=== PATIENT | female | born 1935 | race Caucasian/White ===

== ENCOUNTER 2016-07-23 14:45 | Inpatient (IN) | payer OTHER ==
[~2016-07-23] VITALS: Ht 165.1 cm; Wt 56.7 kg
[2016-07-23 18:19] VITALS: PULSE 69
[2016-07-23 18:32] VITALS: BP 111/53; PULSE 65; RESP 20
[2016-07-23 19:56] VITALS: BP 121/60; RESP 17
[2016-07-23] MEDS ORDERED: LISI10TA2 PO (19:59)
[2016-07-23] MEDS ORDERED: OXYB5TAB7 PO (20:01)
[2016-07-23] MEDS ORDERED: BISA5TAB6 PO (20:04)
[2016-07-23] MEDS ORDERED: AMIT25TA9 PO (20:04)
[2016-07-23] MEDS ORDERED: OPTI5OP6 BOTH EYES (20:04)
[2016-07-23] MEDS ORDERED: HYDR12.58 PO (20:05)
[2016-07-23 20:22] VITALS: PULSE 69
[2016-07-23] MEDS ORDERED: BISACODYL (EC) 5 MG TAB PO PRN (21:00)
[2016-07-23 23:42] VITALS: BP 118/55; RESP 18
[2016-07-23] MEDS ORDERED: OXYBUTYNIN 5 MG TAB PO SCH (23:45)
[2016-07-23 23:56] VITALS: Ht 165.1 cm; Wt 56.7 kg
[2016-07-24] VITALS (12 sets, daily range): BP systolic 100–132; BP diastolic 53–76; PULSE 69–85; RESP 16–20
--- NOTE | 2016-07-24 00:11 | RADRPT ---
PROCEDURE: Portable chest x-ray. CLINICAL INDICATION: Nasogastric tube placement. TECHNIQUE: Portable AP view of the chest. COMPARISON: None. FINDINGS: A nasogastric tube terminates in the stomach. There are low lung volumes, limiting evaluation of th e pulmonary vessels. There is mild bibasilar atelectasis. The cardiac silhouette is magnified. No pleural effusion is seen. There is no pneumothorax. IMPRESSION: 1. Nasogastric tube tip in the stomach. 2. Low lung volumes. RPTAT: HTAR .Aniket Eagle MD, MD Date Time Electronically viewed and signed by .Aniket Eagle MD, on 07/24/2016 00:11 .R/
[2016-07-24] MEDS: AZELASTINE 0.05% 6 ML OPH BOTH EYES SCH ×2 (01:22→10:10)
[2016-07-24] MEDS: PANTOPRAZOLE 40 MG INJ IV SCH (05:55)
[2016-07-24 08:00] LABS: ADD SCAN DIFF NO
[2016-07-24 08:07] LABS: BASOPHILS % 0.4 % (0.0-2.0); EOSINOPHILS # 0.2 10^3/ul (0.0-0.5); HEMATOCRIT 40.5 % (37.0-47.0); HEMOGLOBIN 13.4 g/dl (12.0-16.0); LYMPHOCYTES # 3.2 10^3/ul (0.8-2.9); LYMPHOCYTES % 34.5 % (15.0-51.0); MEAN CORPUSCULAR HEMOGLOBIN 29.7 pg (29.0-33.0); MEAN CORPUSCULAR HGB CONC 33.1 g/dl (32.0-37.0); MEAN CORPUSCULAR VOLUME 89.8 fl (82.0-101.0); MEAN PLATELET VOLUME 11.3 fl (7.4-10.4); MONOCYTE # 0.6 10^3/ul (0.3-0.9); MONOCYTES % 6.7 % (0.0-11.0); NEUTROPHIL # 5.3 10^3/ul (1.6-7.5); NEUTROPHILS % 56.1 % (39.0-77.0); RED BLOOD COUNT 4.51 10^6/ul (4.20-5.40); WHITE BLOOD COUNT 9.4 10^3/ul (4.8-10.8)
[2016-07-24 08:27] LABS: ALBUMIN 4.5 g/dl (3.3-4.9); ALBUMIN/GLOBULIN RATIO 1.21; BILIRUBIN,INDIRECT 0.9 mg/dl (0-1.1); BILIRUBIN,TOTAL 0.9 mg/dl (0.2-1.3); CALCIUM 8.7 mg/dl (8.4-10.2); CREATININE 0.57 mg/dl (0.44-1.00); TOTAL PROTEIN 8.2 g/dl (6.1-8.1)
[2016-07-24] MEDS: ASPIRIN 325 MG TAB GTB SCH (10:10)
[2016-07-24] MEDS: OXYBUTYNIN 5 MG TAB NGT SCH ×3 (10:11→20:45)
[2016-07-24 11:20] LABS: PLATELET COUNT 230 10^3/UL (140-415)
--- NOTE | 2016-07-24 21:03 | HP ---
DATE OF ADMISSION: 07/23/2016 HISTORY OF PRESENT ILLNESS: The patient is an 81-year-old female who was recently transferred from [facility] with diagnosis of acute stroke. Elderly female with history of hypertension, history of dementia, presented to [facility] with altered level of consciousness, left-sided weakness. The patient noted to have blood pressure 123/61 at the time of arrival. The patient was seen. The patient's diagnoses include acute left-sided weakness, hypertension, dementia, anemia, positive troponin. saw this patient in consultation, and her impression, the patient has stroke, more likely Joselito paralysis. The patient's chest x-ray shows mild vascular congestion, and patient had CT brain, shows white matter disease compatible with chronic small- vessel disease. The patient also had MRI of the brain, shows acute infarction involving the right corpus striatum, no evidence of hemorrhagic conversion or associated mass effect, mild to moderate generalized volume loss, mild chronic microvascular ischemic changes. The patient has ultrasound of the carotids, shows less than 50% stenosis bilaterally in the internal carotid arteries, normal antegrade flow in the vertebral arteries bilaterally. Chest x-ray: Blunting of the costophrenic angles bilaterally which may reflect small bilateral effusion or pleural thickening, vascular calcification consistent with atherosclerosis. 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 The patient was transferred here for further management. ALLERGY HISTORY, FAMILY HISTORY, SOCIAL HISTORY: Cannot be obtained. MEDICATION HISTORY: 1. Tylenol. 2. Aluminum hydroxide. 3. Aspirin. 4. Nitroglycerin. 5. Protonix. 6. Lisinopril. 7. Ditropan. 8. Eyedrops. 9. Bisacodyl. 10. Amitriptyline. REVIEW OF SYSTEMS: Cannot be obtained. PHYSICAL EXAMINATION: GENERAL: The patient is altered, weak, lethargic. VITAL SIGNS: Stable. HEENT: Head is atraumatic, normocephalic. Pupils equal, reactive to light. NECK: Supple. No JVD. LUNGS: Clear. CARDIOVASCULAR: S1, S2 are normal. ABDOMEN: Soft, nontender. Bowel sounds present. No palpable mass. EXTREMITIES: No cyanosis, clubbing or edema. CENTRAL NERVOUS SYSTEM: The patient is awake, at times alert with left-sided weakness noted. MUSCULOSKELETAL: No arthritis, DJD noted. IMPRESSION: 1. Acute cerebrovascular accident, left-sided hemiplegia. 2. Hypertension. 3. History of dementia. 4. Atherosclerotic heart disease. PLAN: Keep her n.p.o., IV fluid since patient failed swallow test at [facility]. Aspirin and blood pressure medicine as needed. The patient was already seen by Dr. Tobin, so no cardiology consultation will be recommended at this point. The patient was seen by Neurology at [facility]. GI consultation with G-tube placement will be obtained. Dictated By: GIAN HERNANDEZ MD BS/NTS Conf#: [id number] DID#: [id number] MTDD
--- NOTE | 2016-07-24 21:34 | CONS ---
DATE OF ADMISSION: 07/23/2016 DATE OF CONSULTATION: TYPE OF CONSULTATION: Gastroenterology. REFERRING PHYSICIAN: Dr. Marvin Ghosh REASON FOR CONSULTATION: Placement of G-tube. HISTORY OF PRESENT ILLNESS: An 81-year-old female with a history of hypertension, dementia, was adm itted to [facility] for altered level of consciousness. In the ER, patient was evaluated, found to have left-sided weakness. When she was at [place] [facility], her blood pressure was stable. W jes cell count was normal, hematocrit was 40. A CAT scan was done which did not reveal any intracr anial bleed or significant mass effect. There was age-related lacunar infarction, and the patient w as admitted for further management. I think patient had a swallow evaluation; she failed. NG tube was passed, and now GI consult is called in for placement of G-tube. The patient is transferred to [facility] for insurance purposes. PAST MEDICAL HISTORY: Dementia, CVA. ALLERGIES: NEGATIVE. FAMILY HISTORY: Negative. SOCIAL HISTORY: Nothing contributory. She does not smoke, drink or take any recreational drugs. MEDICATIONS: All reviewed. She is on: 1. Bisacodyl. 2. Hydrochlorothiazide. 3. Amitriptyline. 4. Eye drops. 5. Lisinopril. 6. Oxybutynin. PHYSICAL EXAMINATION: GENERAL: The patient is sleepy. VITAL SIGNS: Stable. HEENT: Unremarkable. NECK: Supple. No thyromegaly, no lymphadenopathy. CARDIOVASCULAR: No murmur, gallop or click. LUNGS: Clear. ABDOMEN: Benign. EXTREMITIES: No edema. CENTRAL NERVOUS SYSTEM: Grossly within normal limits. The patient has got NG tube. IMPRESSION: 1. Cerebrovascular accident. 2. Dementia. 3. Hypertension. PLAN: Proceed with placement of G-tube. Discussed with the family, they were in agreement. Explai artemio to them with the help of correspondence coordinator, all the questions answered. Pros and cons of the procedur e also were explained and understood and agreed. Dictated By: MACK WOODS/RHONA Conf#: [id number] DID#: [id number]
[2016-07-25] VITALS (11 sets, daily range): BP systolic 99–129; BP diastolic 60–67; PULSE 70–93; RESP 16–20
[2016-07-25] MEDS: PANTOPRAZOLE 40 MG INJ IV SCH (05:53)
[2016-07-25] MEDS: AZELASTINE 0.05% 6 ML OPH BOTH EYES SCH (09:52)
[2016-07-25] MEDS: ASPIRIN 325 MG TAB GTB SCH (09:52)
[2016-07-25] MEDS: OXYBUTYNIN 5 MG TAB NGT SCH ×3 (09:52→20:50)
--- NOTE | 2016-07-25 12:13 | CONS ---
Date/Time of Note Date/Time of Note DATE: 07/25/16 TIME: 12:02 Assessment/Plan Assessment/Plan Chief Complaint/Hosp Course 81 year old female with history of DM, HTN tx from [facility] for right hemisphere infarction with resulting left sided weakness and dysphagia. -continue on aspirin -check FLP, HBA1c for optimization of risk factors -maintain normotensive blood pressure Goal <140/90 -2D ECHO if testing has not been completed at [facility] -continue telemetry monitoring for afib -planned for PEG placement -DVT ppx -likely will require SNF Problems: Consultation Date/Type/Reason Admit Date/Time July 23, 2016 at 18:01 Date of Consultation: Jul 25, 2016 Type of Consultation: Neurology Reason for Consultation evaluation for left sided weakness Referring Provider: GIAN HERNANDEZ MD Hx of Present Illness 81 year old female with history of dementia transferred from [facility] on 07/20 for management of CVA. She has a known history of dementia and hypertension and had presented to [facility] with altered mental status and left sided weakness and troponin elevation (0.042). MRI showed an acute infarction of right basal ganglia? per documentation no evidence of hemorrhagic conversion, carotid duplex less than 50% stenosis bilaterally. There was a 2x2 mm anterior projection saccular aneurysm from the Left MCA bifurcation also noted. She was tx to [facility] for further management, has an NGT for feeds has been unable to pass dysphagia screening and is planned for PEG placement. She has no documented history of afib, Daughter at bedside states patient is living with family at home prior to this admission and did require assistance with most ADL's. non verbal left sided hemiplegia dysphagia Social History Smoking Status: Never smoker Exam/Review of Systems Vital Signs Vitals Vital Signs Date Time Temp Pulse Resp B/P Pulse Ox O2 Delivery O2 Flow Rate FiO2 07/25/16 11:12 98.5 65 18 99/60 95 07/24/16 20:00 Nasal Cannula 2.0 Intake and Output 07/24/16 07/24/16 07/25/16 15:00 23:00 07:00 Intake Total 440 ml 440 ml Balance 440 ml 440 ml Exam elderly thin appearing frail female NAD NGT feeds she is difficult to arouse she moans and is unable to verbalize or follow any commands CN: LINDA when eyes forced open she has a right gaze preference and is unable to cross over to the left on command oculocephalics are intact, no nystagmus, no significant facial asymmetry corneals are intact gag is present Motor: left arm and leg are flaccid 0/5 decreased tone right arm and leg withdraw anti-gravity to noxious seems to sense noxious only on the right arm and leg unable to cooperate with coordination Reflexes: 2+ UE, 2+ LE absent AJ toes are mute Results Result Diagram: 07/24/1664007/24/16640 Medications Medications Current Medications Azelastine HCl (Optivar 0.05% Oph) 1 drop DAILY BOTH EYES Last administered on 07/25/16 09:52; Admin Dose 1 DROP; Start 07/23/16 at 23:45 Bisacodyl (Dulcolax) 5 mg DAILY PRN PO CONSTIPATION; Start 07/23/16 at 21:00 Pantoprazole (Protonix Iv) 40 mg DAILY@06 IV Last administered on 07/25/16 05: 53; Admin Dose 40 MG; Start 07/24/16 at 06:00 Aspirin (Aspirin) 325 mg DAILY GTB Last administered on 07/25/16 09:52; Admin Dose 325 MG; Start 07/24/16 at 09:00 Oxybutynin Chloride (Ditropan) 5 mg TID NGT Last administered on 07/25/16 09:52 ; Admin Dose 5 MG; Start 07/24/16 at 09:00 SAUL MONTOYA MD Jul 25, 2016 12:13
[2016-07-26] VITALS (20 sets, daily range): BP systolic 94–119; BP diastolic 54–75; PULSE 60–88; RESP 12–25
[2016-07-26] MEDS: PANTOPRAZOLE 40 MG INJ IV SCH (06:19)
[2016-07-26 08:32] LABS: CHOL/HDL RATIO 4.1 RATIO
[2016-07-26] MEDS: AZELASTINE 0.05% 6 ML OPH BOTH EYES SCH (08:44)
[2016-07-26] MEDS: OXYBUTYNIN 5 MG TAB NGT SCH ×3 (08:44→20:50)
[2016-07-26] MEDS: ASPIRIN 325 MG TAB GTB SCH (08:44)
--- NOTE | 2016-07-26 09:25 | RADRPT ---
PROCEDURE: MRI Brain without contrast. CLINICAL INDICATION: Stroke. TECHNIQUE: An MRI of the brain was performed utilizing the following sequences: Sagittal and axial T1 weighted, axial T2 weighted, axial diffusion weighted with ADC mapping, coronal GRE, and axial F LAIR. COMPARISON: None. FINDINGS: There is area of restricted diffusion involving right romero radiata and right lentiform nucleus con sistent with acute/recent infarct. No hypointense signal abnormalities are seen on the GRE images t o suggest the presence of blood degradation products. There is no evidence of intracranial hemorrha ge, mass effect, or midline shift. No extra-axial fluid collections are seen. The ventricles and sul ci are mildly to moderately enlarged indicative of volume loss. There are mild confluent foci of T2 FLAIR hyperintensity mainly in the periventricular and deep whit e matter, which are nonspecific in etiology but likely reflect chronic small vessel ischemic changes . Small T2 hyperintense foci are noted in bilateral lentiform nuclei which likely represent dilated pe rivascular spaces versus old lacunar infarcts. No abnormal intracranial vascular flow void is noted. The visualized paranasal sinuses demonstrate m ild scattered mucosal thickening mainly in ethmoid air cells and maxillary sinuses. There is elongat ed appearance of the right globe which may represent staphyloma. There is thinning of right lens ind icative of prior lens replacement. IMPRESSION: 1. Acute/recent infarct involving right romero radiata and right lentiform nucleus. No evidence of hemorrhagic transformation. 2. Mild to moderate chronic small vessel ischemic changes. 3. Dilated perivascular spaces versus old lacunar infarcts in bilateral lentiform nuclei. 4. Mild to moderate generalized cerebral volume loss. A call report was made and above findings were discussed and acknowledged by the patient's RN Maira Jefferson on 07/26/2016 9:[address] Borrego. RPTAT: JJ .Mayra Larry MD, MD Date Time Electronically viewed and signed by .Mayra Larry MD, MD on 07/26/2016 09:24 .N/
[2016-07-26] MEDS ORDERED: CEFAZOLIN 1 GM/50 ML (PMX) 50 ML IVPB ONE (12:01)
[2016-07-26] MEDS ORDERED: PROPOFOL 20 ML ONE (12:23)
--- NOTE | 2016-07-26 12:55 | GILP ---
DATE OF PROCEDURE: PROCEDURE PERFORMED: Percutaneous endoscopy and gastrostomy. INDICATION: An 81-year-old female undergoing this procedure for dysphagia secondary to a stroke. T he purpose is to put a G-tube directly into the stomach for prison enteral nutrition. INFORMED CONSENT: The risks of the procedure, related and unrelated complications, anesthetic risks , and alternatives were discussed, and informed consent was obtained. DESCRIPTION OF PROCEDURE: The patient was brought to the GI lab, sedated by the anesthesiologist. After optimal sedation, the scope was passed with much ease into the esophagus. The patient also re ceived Ancef 1 gram prior to the procedure. The scope was advanced all the way into the stomach and duodenum. There was no evidence of obstruction. By transillumination and digital palpation techni que, an appropriate site was chosen on the anterior abdominal wall, making sure that we have avoidin g the large fold on the anterior abdominal wall. The site was sterilized with chlorhexidine solutio n, 2% Xylocaine instilled by safe method. A small incision was made. Through that incision a troca r stylus was passed into the stomach. The stylet was removed. Over the tip of the catheter the ins ertion wire was passed and the entire procedure was completed by modified Ponsky technique. The pat ient was rescoped. The position of the internal bumper was confirmed. External bumper was secured. She tolerated the procedure very well. IMPRESSION: Successful placement of G-tube done. PLAN: Resume feeding after 6 hours and all the medication after 6 hours. Abdominal binder all the time. Dictated By: MACK WOODS/RHONA Conf#: [id number] DID#: [id number] CC: GIAN HERNANDEZ MD;*EndCC*
[2016-07-26] MEDS ORDERED: ONDANSETRON 4 MG INJ IV PRN (14:00)
[2016-07-26] MEDS ORDERED: MORPHINE 2 MG IV PRN (14:00)
[2016-07-26] MEDS ORDERED: LABETALOL 5 MG IV PRN (14:00)
--- NOTE | 2016-07-26 14:06 | PN ---
Date/Time of Note Date/Time of Note DATE: 07/26/16 TIME: 14:04 Assessment/Plan VTE Prophylaxis VTE Prophylaxis Intervention: SCD's Lines/Catheters IV Catheter Type (from Nrs): Peripheral IV Central line still needed: Yes Urinary Cath still in place: No Assessment/Plan Chief Complaint/Hosp Course 1. S/p Acute cerebrovascular accident, left-sided hemiplegia. 2. Hypertension. 3. History of dementia. 4. Atherosclerotic heart disease. 5. GT Problems: Assessment/Plan 1. Continue tube feedings Subjective 24 Hr Interval Summary Subjective hx not possible: pt non-verbal Exam/Review of Systems Vital Signs Vitals Vital Signs Date Time Temp Pulse Resp B/P Pulse Ox O2 Delivery O2 Flow Rate FiO2 07/26/16 13:02 64 25 107/75 95 Room Air 07/26/16 12:30 97.5 8.0 Intake and Output 07/25/16 07/25/16 07/26/16 15:00 23:00 07:00 Intake Total 480 ml 260 ml Balance 480 ml 260 ml Exam Constitutional: other (lethargic) Psych: no complaints Eyes: nl conjunctiva Neck: supple Respiratory: clear to auscultation, normal air movement Cardiovascular: regular rate and rhythm Gastrointestinal: other (gt), soft Genitourinary - Female: nl external genitalia Results Result Diagram: 07/24/1664007/24/16 06 Results 24 hrs Laboratory Tests Test 07/26/16 07:02 Hemoglobin A1c 5.7 Triglycerides Level 106 Cholesterol Level 142 LDL Cholesterol, Calculated 87 HDL Cholesterol 34 Cholesterol/HDL Ratio 4.1 Medications Medications Current Medications Azelastine HCl (Optivar 0.05% Oph) 1 drop DAILY BOTH EYES Last administered on 07/26/16 08:44; Admin Dose 1 DROP; Start 07/23/16 at 23:45 Bisacodyl (Dulcolax) 5 mg DAILY PRN PO CONSTIPATION; Start 07/23/16 at 21:00 Pantoprazole (Protonix Iv) 40 mg DAILY@06 IV Last administered on 07/26/16 06: 19; Admin Dose 40 MG; Start 07/24/16 at 06:00 Aspirin (Aspirin) 325 mg DAILY GTB Last administered on 07/25/16 09:52; Admin Dose 325 MG; Start 07/24/16 at 09:00 Oxybutynin Chloride (Ditropan) 5 mg TID NGT Last administered on 07/25/16t 20:50 ; Admin Dose 5 MG; Start 07/24/16 at 09:00 Morphine Sulfate (morphine (REC)) 2 mg PACU PRN IV PAIN; Start 07/26/16 at 14:00 ; Stop 07/26/16 at 21:00 JAYESH LARIOS Jul 26, 2016 14:06
--- NOTE | 2016-07-26 14:53 | CONS ---
Date/Time of Note Date/Time of Note DATE: 07/26/16 TIME: 14:47 Assessment/Plan Assessment/Plan Chief Complaint/Hosp Course Left hemiparesis Problems: Additional Assessment/Plan 81 year old female with history of DM, HTN tx from [facility] for right hemisphere infarction with resulting left sided weakness and dysphagia. MRI of the brain showed acute/recent infarct involving right romero radiata and right lentiform nucleus, mild to moderate chronic small vessel ischemic changes , dilated perivascular spaces versus old lacunar infarcts in bilateral lentiform nuclei, mild to moderate generalized cerebral volume loss. PEG has been placed. Plan -continue on aspirin -check FLP, HBA1c for optimization of risk factors -maintain normotensive blood pressure Goal <140/90 -2D ECHO -continue telemetry monitoring for afib -DVT ppx -likely will require SNF Consultation Date/Type/Reason Admit Date/Time July 23, 2016 at 18:01 Initial Consult Date 07/25/16 Type of Consultation: Neurology Referring Provider: GIAN HERNANDEZ MD 24 HR Interval Summary Free Text/Dictation She has been doing well, more awake and alert. Had an NG tube placed. Continued to be left hemiparetic. MRI of the brain showed acute/recent infarct involving right romero radiata and right lentiform nucleus, mild to moderate chronic small vessel ischemic changes, dilated perivascular spaces versus old lacunar infarcts in bilateral lentiform nuclei, mild to moderate generalized cerebral volume loss. Exam/Review of Systems Vital Signs Vitals Vital Signs Date Time Temp Pulse Resp B/P Pulse Ox O2 Delivery O2 Flow Rate FiO2 07/26/16 13:02 64 25 107/75 95 Room Air 07/26/16 12:30 97.5 8.0 Intake and Output 07/25/16 07/25/16 07/26/16 15:00 23:00 07:00 Intake Total 480 ml 260 ml Balance 480 ml 260 ml Exam Constitutional: alert Psych: no complaints Head: normocephalic Eyes: EOMI, nl conjunctiva, nl lids ENMT: nl external ears & nose, nl lips & teeth, nl nasal mucosa & septum Neck: non-tender, supple Respiratory: clear to auscultation, normal air movement Cardiovascular: nl pulses, regular rate and rhythm Gastrointestinal: nl liver, spleen, non-tender, soft Neurological: other (Alert and awake, left hemiparesis, left Babinski) Results Result Diagram: 07/24/1641 07/24/16640 Results 24 hrs Laboratory Tests Test 07/26/16 07:02 Hemoglobin A1c 5.7 Triglycerides Level 106 Cholesterol Level 142 LDL Cholesterol, Calculated 87 HDL Cholesterol 34 Cholesterol/HDL Ratio 4.1 Medications Medications Current Medications Azelastine HCl (Optivar 0.05% Oph) 1 drop DAILY BOTH EYES Last administered on 07/26/16 08:44; Admin Dose 1 DROP; Start 07/23/16 at 23:45 Bisacodyl (Dulcolax) 5 mg DAILY PRN PO CONSTIPATION; Start 07/23/16 at 21:00 Pantoprazole (Protonix Iv) 40 mg DAILY@06 IV Last administered on 07/26/16 06: 19; Admin Dose 40 MG; Start 07/24/16 at 06:00 Aspirin (Aspirin) 325 mg DAILY GTB Last administered on 07/25/16 09:52; Admin Dose 325 MG; Start 07/24/16 at 09:00 Oxybutynin Chloride (Ditropan) 5 mg TID NGT Last administered on 07/25/16 20:50 ; Admin Dose 5 MG; Start 07/24/16 at 09:00 Morphine Sulfate (morphine (REC)) 2 mg PACU PRN IV PAIN; Start 07/26/16 at 14:00 ; Stop 07/26/16 at 21:00 Procedures Procedures MRI of the brain 07/26/2016 IMPRESSION: 1. Acute/recent infarct involving right romero radiata and right lentiform nucleus. No evidence of hemorrhagic transformation. 2. Mild to moderate chronic small vessel ischemic changes. 3. Dilated perivascular spaces versus old lacunar infarcts in bilateral lentiform nuclei. 4. Mild to moderate generalized cerebral volume loss. A call report was made and above findings were discussed and acknowledged by the patient's RN Maira Jefferson on 07/26/2016 9:[address] Borrego. RPTAT: JJ .Mayra Larry MD, Date Time Electronically viewed and signed by .Mayra Larry MD, on 07/26/2016 09:24 SHYAM RENDON MD Jul 26, 2016 14:53
--- NOTE | 2016-07-26 23:55 | RADRPT ---
Vent Rate: 82 bpm RR Interval: 0 msec RI Interval: 174 msec QRS Duration: 84 msec QT Interval: 380 msec QTC Interval: 443 msec P-R-T [place]: 39 - -36 - 68 degrees Normal sinus rhythm Left axis deviation Inferior infarct , age undetermined Possible Anterior infarct , age undetermined Abnormal ECG Electronically Signed By: Rob Kendall [id number]
[2016-07-27] VITALS (12 sets, daily range): BP systolic 100–127; BP diastolic 54–64; PULSE 62–87; RESP 17–19
[2016-07-27] MEDS: PANTOPRAZOLE 40 MG INJ IV SCH (06:14)
[2016-07-27 07:33] LABS: ADD SCAN DIFF NO
[2016-07-27 07:35] LABS: BASOPHILS % 0.3 % (0.0-2.0); EOSINOPHILS # 0.1 10^3/ul (0.0-0.5); EOSINOPHILS % 0.8 % (0.0-7.0); HEMATOCRIT 41.6 % (37.0-47.0); HEMOGLOBIN 13.5 g/dl (12.0-16.0); LYMPHOCYTES % 31.5 % (15.0-51.0); MEAN CORPUSCULAR HEMOGLOBIN 29.2 pg (29.0-33.0); MEAN CORPUSCULAR HGB CONC 32.5 g/dl (32.0-37.0); MEAN CORPUSCULAR VOLUME 89.8 fl (82.0-101.0); MEAN PLATELET VOLUME 10.2 fl (7.4-10.4); MONOCYTE # 0.7 10^3/ul (0.3-0.9); MONOCYTES % 7.5 % (0.0-11.0); NEUTROPHIL # 5.7 10^3/ul (1.6-7.5); NEUTROPHILS % 59.6 % (39.0-77.0); PLATELET COUNT 258 10^3/UL (140-415); RED BLOOD COUNT 4.63 10^6/ul (4.20-5.40); RED CELL DISTRIBUTION WIDTH 13.2 % (11.5-14.5); WHITE BLOOD COUNT 9.6 10^3/ul (4.8-10.8)
[2016-07-27 09:28] LABS: CALCIUM 8.7 mg/dl (8.4-10.2); CREATININE 0.58 mg/dl (0.44-1.00); POTASSIUM 3.6 mmol/L (3.5-5.1)
[2016-07-27] MEDS: AZELASTINE 0.05% 6 ML OPH BOTH EYES SCH (10:12)
[2016-07-27] MEDS: OXYBUTYNIN 5 MG TAB NGT SCH ×2 (10:12→12:27)
[2016-07-27] MEDS: ASPIRIN 325 MG TAB GTB SCH (10:12)
--- NOTE | 2016-07-27 13:03 | CONS ---
Date/Time of Note Date/Time of Note DATE: 07/27/16 TIME: 13:00 Assessment/Plan Assessment/Plan Chief Complaint/Hosp Course Left hemiparesis Problems: Additional Assessment/Plan 81 year old female with history of DM, HTN tx from [facility] for right hemisphere infarction with resulting left sided weakness and dysphagia. MRI of the brain showed acute/recent infarct involving right romero radiata and right lentiform nucleus, mild to moderate chronic small vessel ischemic changes , dilated perivascular spaces versus old lacunar infarcts in bilateral lentiform nuclei, mild to moderate generalized cerebral volume loss. PEG has been placed. Plan -continue on aspirin -check FLP, HBA1c for optimization of risk factors -maintain normotensive blood pressure Goal <140/90 -2D ECHO -continue telemetry monitoring for afib -DVT ppx -likely will require SNF Consultation Date/Type/Reason Admit Date/Time July 23, 2016 at 18:01 Initial Consult Date 07/25/16 Type of Consultation: Neurology Referring Provider: GIAN HERNANDEZ MD 24 HR Interval Summary Free Text/Dictation Had a PEG placed yesterday. Improving and her weakness. Exam/Review of Systems Vital Signs Vitals Vital Signs Date Time Temp Pulse Resp B/P Pulse Ox O2 Delivery O2 Flow Rate FiO2 07/27/16 12:01 62 07/27/16 11:35 98.7 17 111/61 95 07/26/16 13:02 Room Air 07/26/16 12:30 8.0 Intake and Output 07/26/16 07/26/16 07/27/16 15:00 23:00 07:00 Intake Total 0 ml Balance 0 ml Exam Constitutional: other (Sleepy but arousable) Psych: nl mood/affect, no complaints Head: atraumatic, normocephalic Eyes: EOMI, nl conjunctiva, nl lids, nl sclera ENMT: mucosa pink and moist, nl external ears & nose, nl lips & teeth, nl nasal mucosa & septum Neck: non-tender, supple Respiratory: clear to auscultation, normal air movement Cardiovascular: nl pulses, regular rate and rhythm Gastrointestinal: nl liver, spleen, non-tender, soft Neurological: other (She is sleepy but arousable, left hemiparesis) Results Result Diagram: 07/27/16 0700 07/27/16 0700 Results 24 hrs Laboratory Tests Test 07/27/16 07:00 White Blood Count 9.6 Red Blood Count 4.63 Hemoglobin 13.5 Hematocrit 41.6 Mean Corpuscular Volume 89.8 Mean Corpuscular Hemoglobin 29.2 Mean Corpuscular Hemoglobin Concent 32.5 Red Cell Distribution Width 13.2 Platelet Count 258 Mean Platelet Volume 10.2 Neutrophils % 59.6 Lymphocytes % 31.5 Monocytes % 7.5 Eosinophils % 0.8 Basophils % 0.3 Nucleated Red Blood Cells % 0.0 Neutrophils # 5.7 Lymphocytes # 3.0 H Monocytes # 0.7 Eosinophils # 0.1 Basophils # 0.0 Nucleated Red Blood Cells # 0.0 Sodium Level 143 Potassium Level 3.6 Chloride Level 108 Carbon Dioxide Level 26 Anion Gap 13 Blood Urea Nitrogen 19 Creatinine 0.58 Glucose Level 116 Calcium Level 8.7 Medications Medications Current Medications Azelastine HCl (Optivar 0.05% Oph) 1 drop DAILY BOTH EYES Last administered on 07/27/16 10:12; Admin Dose 1 DROP; Start 07/23/16 at 23:45 Bisacodyl (Dulcolax) 5 mg DAILY PRN PO CONSTIPATION; Start 07/23/16 at 21:00 Pantoprazole (Protonix Iv) 40 mg DAILY@06 IV Last administered on 07/27/16 06: 14; Admin Dose 40 MG; Start 07/24/16 at 06:00 Aspirin (Aspirin) 325 mg DAILY GTB Last administered on 07/27/16 10:12; Admin Dose 325 MG; Start 07/24/16 at 09:00 Oxybutynin Chloride (Ditropan) 5 mg TID NGT Last administered on 07/27/16 12:27 ; Admin Dose 5 MG; Start 07/24/16 at 09:00 SHYAM RENDON MD Jul 27, 2016 13:03
--- NOTE | 2016-07-27 13:30 | PN ---
Date/Time of Note Date/Time of Note DATE: 07/27/16 TIME: 13:28 Assessment/Plan VTE Prophylaxis VTE Prophylaxis Intervention: SCD's Lines/Catheters IV C[facility] Type ([facility] Saline Lock Urinary Cath still in place: No Assessment/Plan Chief Complaint/Hosp Course 1. S/p Acute cerebrovascular accident, left-sided hemiplegia. 2. Hypertension. 3. History of dementia. 4. Atherosclerotic heart disease. 5. GT Problems: Assessment/Plan 1. Discharge home Subjective 24 Hr Interval Summary Free Text/Dictation whisper words Respiratory: no complaints Cardiovascular: no complaints Gastrointestinal: no complaints Exam/Review of Systems Vital Signs Vitals Vital Signs Date Time Temp Pulse Resp B/P Pulse Ox O2 Delivery O2 Flow Rate FiO2 07/27/16 12:01 62 07/27/16 11:35 98.7 17 111/61 95 07/26/16 13:02 Room Air 07/26/16 12:30 8.0 Intake and Output 07/26/16 07/26/16 07/27/16 15:00 23:00 07:00 Intake Total 0 ml Balance 0 ml Exam Constitutional: alert (name only) Psych: no complaints Head: normocephalic Neck: supple Respiratory: clear to auscultation Cardiovascular: regular rate and rhythm Gastrointestinal: other (gt), soft Results Result Diagram: 07/27/16 0700 07/27/16 0700 Results 24 hrs Laboratory Tests Test 07/27/16 07:00 White Blood Count 9.6 Red Blood Count 4.63 Hemoglobin 13.5 Hematocrit 41.6 Mean Corpuscular Volume 89.8 Mean Corpuscular Hemoglobin 29.2 Mean Corpuscular Hemoglobin Concent 32.5 Red Cell Distribution Width 13.2 Platelet Count 258 Mean Platelet Volume 10.2 Neutrophils % 59.6 Lymphocytes % 31.5 Monocytes % 7.5 Eosinophils % 0.8 Basophils % 0.3 Nucleated Red Blood Cells % 0.0 Neutrophils # 5.7 Lymphocytes # 3.0 H Monocytes # 0.7 Eosinophils # 0.1 Basophils # 0.0 Nucleated Red Blood Cells # 0.0 Sodium Level 143 Potassium Level 3.6 Chloride Level 108 Carbon Dioxide Level 26 Anion Gap 13 Blood Urea Nitrogen 19 Creatinine 0.58 Glucose Level 116 Calcium Level 8.7 Medications Medications Current Medications Azelastine HCl (Optivar 0.05% Oph) 1 drop DAILY BOTH EYES Last administered on 07/27/16 10:12; Admin Dose 1 DROP; Start 07/23/16 at 23:45 Bisacodyl (Dulcolax) 5 mg DAILY PRN PO CONSTIPATION; Start 07/23/16 at 21:00 Pantoprazole (Protonix Iv) 40 mg DAILY@06 IV Last administered on 07/27/16 06: 14; Admin Dose 40 MG; Start 07/24/16 at 06:00 Aspirin (Aspirin) 325 mg DAILY GTB Last administered on 07/27/16 10:12; Admin Dose 325 MG; Start 07/24/16 at 09:00 Oxybutynin Chloride (Ditropan) 5 mg TID NGT Last administered on 07/27/16 12:27 ; Admin Dose 5 MG; Start 07/24/16 at 09:00 JAYESH LARIOS Jul 27, 2016 13:30
--- NOTE | 2016-07-27 13:42 | PDOCDIS ---
Discharge Instructions DIAGNOSIS Discharge Diagnosis: CVA, dysphagia CONDITION Patient Condition: Stable HOME CARE INSTRUCTIONS: Diet Instructions: Special Diet: GT FEEDING ACTIVITY: Activity Restrictions: Slowly Increase Activity Bathing Restrictions: Sponge Bath REFERRALS Other Referrals PCP 1 week SCHOOL/WORK RELEASE May return to School/Work with: With Restrictions JAYESH LARIOS Jul 27, 2016 13:42
[2016-07-27] MEDS ORDERED: OXYB5TAB7 NGT (13:45)
--- NOTE | 2016-07-27 20:17 | CONS ---
Date/Time of Note Date/Time of Note DATE: 07/27/16 TIME: 20:15 Assessment/Plan Assessment/Plan Additional Assessment/Plan IMPRESSION: 1. Cerebrovascular accident. 2. Dementia. 3. Hypertension. 4 s/p PEG Plan tolerating feeding increase feeding Consultation Date/Type/Reason Admit Date/Time July 23, 2016 at 18:01 Initial Consult Date 07/25/16 Type of Consultation: Neurology Referring Provider: GIAN HERNANDEZ MD 24 HR Interval Summary Constitutional: improved Exam/Review of Systems Vital Signs Vitals Vital Signs Date Time Temp Pulse Resp B/P Pulse Ox O2 Delivery O2 Flow Rate FiO2 07/27/16 20:10 98.7 72 18 118/64 95 07/26/16 13:02 Room Air 07/26/16 12:30 8.0 Intake and Output 07/26/16 07/26/16 07/27/16 15:00 23:00 07:00 Intake Total 0 ml Balance 0 ml Results Result Diagram: 07/27/16 0700 07/27/16 0700 Results 24 hrs Laboratory Tests Test 07/27/16 07:00 White Blood Count 9.6 Red Blood Count 4.63 Hemoglobin 13.5 Hematocrit 41.6 Mean Corpuscular Volume 89.8 Mean Corpuscular Hemoglobin 29.2 Mean Corpuscular Hemoglobin Concent 32.5 Red Cell Distribution Width 13.2 Platelet Count 258 Mean Platelet Volume 10.2 Neutrophils % 59.6 Lymphocytes % 31.5 Monocytes % 7.5 Eosinophils % 0.8 Basophils % 0.3 Nucleated Red Blood Cells % 0.0 Neutrophils # 5.7 Lymphocytes # 3.0 H Monocytes # 0.7 Eosinophils # 0.1 Basophils # 0.0 Nucleated Red Blood Cells # 0.0 Sodium Level 143 Potassium Level 3.6 Chloride Level 108 Carbon Dioxide Level 26 Anion Gap 13 Blood Urea Nitrogen 19 Creatinine 0.58 Glucose Level 116 Calcium Level 8.7 Medications Medications Current Medications Azelastine HCl (Optivar 0.05% Oph) 1 drop DAILY BOTH EYES Last administered on 07/27/16 10:12; Admin Dose 1 DROP; Start 07/23/16 at 23:45 Bisacodyl (Dulcolax) 5 mg DAILY PRN PO CONSTIPATION; Start 07/23/16 at 21:00 Pantoprazole (Protonix Iv) 40 mg DAILY@06 IV Last administered on 07/27/16 06: 14; Admin Dose 40 MG; Start 07/24/16 at 06:00 Aspirin (Aspirin) 325 mg DAILY GTB Last administered on 07/27/16 10:12; Admin Dose 325 MG; Start 07/24/16 at 09:00 MACK HAINES MD Jul 27, 2016 20:17
[2016-07-28] VITALS (13 sets, daily range): BP systolic 101–112; BP diastolic 55–63; PULSE 62–90; RESP 17–19
[2016-07-28] MEDS: PANTOPRAZOLE 40 MG INJ IV SCH (05:17)
[2016-07-28] MEDS: ASPIRIN 325 MG TAB GTB SCH (09:02)
[2016-07-28] MEDS: AZELASTINE 0.05% 6 ML OPH BOTH EYES SCH (09:02)
--- NOTE | 2016-07-28 12:55 | CONS ---
Date/Time of Note Date/Time of Note DATE: 07/28/16 TIME: 12:54 Assessment/Plan Assessment/Plan Chief Complaint/Hosp Course Left hemiparesis Problems: Additional Assessment/Plan 81 year old female with history of DM, HTN tx from [facility] for right hemisphere infarction with resulting left sided weakness and dysphagia. MRI of the brain showed acute/recent infarct involving right romero radiata and right lentiform nucleus, mild to moderate chronic small vessel ischemic changes , dilated perivascular spaces versus old lacunar infarcts in bilateral lentiform nuclei, mild to moderate generalized cerebral volume loss. PEG has been placed. Plan -continue on aspirin -check FLP, HBA1c for optimization of risk factors -maintain normotensive blood pressure Goal <140/90 -2D ECHO -continue telemetry monitoring for afib -DVT ppx -likely will require SNF Consultation Date/Type/Reason Admit Date/Time July 23, 2016 at 18:01 Initial Consult Date 07/25/16 Type of Consultation: Neurology Reason for Consultation Left hemiparesis Referring Provider: GIAN HERNANDEZ MD 24 HR Interval Summary Free Text/Dictation Clinically unchanged. Eyes are open but does not follow commands. Constitutional: improved Exam/Review of Systems Vital Signs Vitals Vital Signs Date Time Temp Pulse Resp B/P Pulse Ox O2 Delivery O2 Flow Rate FiO2 07/28/16 12:01 98.1 75 19 111/56 90 07/26/16 13:02 Room Air 07/26/16 12:30 8.0 Intake and Output 07/27/16 07/27/16 07/28/16 15:00 23:00 07:00 Intake Total 500 ml 520 ml Balance 500 ml 520 ml Exam Psych: no complaints Head: atraumatic, normocephalic Eyes: EOMI, nl conjunctiva, nl lids, nl sclera ENMT: mucosa pink and moist, nl external ears & nose, nl lips & teeth, nl nasal mucosa & septum Neck: non-tender, supple Respiratory: clear to auscultation, normal air movement Cardiovascular: nl pulses, regular rate and rhythm Gastrointestinal: nl liver, spleen, non-tender, soft Genitourinary - Female: nl adnexae, nl external genitalia Extremities: normal pulses, other (Alert and awake, does not follow commands, does not communicate, left hemiparetic) Skin: nl turgor, rash or lesions Results Result Diagram: 07/27/16 0700 07/27/16 0700 Medications Medications Current Medications Azelastine HCl (Optivar 0.05% Oph) 1 drop DAILY BOTH EYES Last administered on 07/28/16 09:02; Admin Dose 1 DROP; Start 07/23/16 at 23:45 Bisacodyl (Dulcolax) 5 mg DAILY PRN PO CONSTIPATION; Start 07/23/16 at 21:00 Pantoprazole (Protonix Iv) 40 mg DAILY@06 IV Last administered on 07/28/16 05: 17; Admin Dose 40 MG; Start 07/24/16 at 06:00 Aspirin (Aspirin) 325 mg DAILY GTB Last administered on 07/28/16 09:02; Admin Dose 325 MG; Start 07/24/16 at 09:00 Carvedilol (Coreg) 3.125 mg BID PO ; Start 07/28/16 at 21:00 SHYAM RENDON MD Jul 28, 2016 12:55
--- NOTE | 2016-07-28 16:56 | CONS ---
DATE OF ADMISSION: 07/23/2016 DATE OF CONSULTATION: 07/28/2016 TYPE OF CONSULTATION: Cardiology REFERRING PHYSICIAN: Dr. Marvin Ghosh REASON FOR EVALUATION: History of coronary artery disease. HISTORY OF PRESENT ILLNESS: Ms. Jay is an 81-year-old woman with history of hypertension, diabet es, history of current debilitated state, recent CVA who comes to the hospital now for evaluation of post-CVA care and small vessel angiographic changes. I have been asked to see the patient in consu ltation because of borderline elevated troponins. Initially, the patient was at [facility] where she was initially evaluated. She had a 2-D echo that and we will try to obtain the results o f the echo report. The patient appears to be a fairly debilitated [facility] resident, I do not t hink that ischemic risk stratification at this point is going to significantly alter her prognosis o r life expectancy. I think for now, conservative therapy will be warranted with presumption that th e patient has coronary artery disease equivalent. PAST MEDICAL HISTORY: 1. Hypertension. 2. Dyslipidemia. 3. History of cerebrovascular accident. 4. Diabetes. 5. History of PEG placement. 6. History of recent cerebrovascular accident. ALLERGIES: NO KNOWN DRUG ALLERGIES. SOCIAL HISTORY: The patient does not smoke, does not drink, does not use drugs. FAMILY HISTORY: Negative for sudden cardiac or premature coronary artery disease. MEDICATIONS: Here are: 1. Aspirin 325 mg a day. 2. Pantoprazole ____. . REVIEW OF SYSTEMS: CONSTITUTIONAL: No fevers, no shortness of breath. HEENT: No change in vision or hearing. CARDIAC: No chest pain reported. RESPIRATORY: No shortness of breath. GASTROINTESTINAL: No nausea, vomiting, diarrhea, constipation. GENITOURINARY: No dysuria, hematuria. NEUROLOGIC: Status post recent CVA. PSYCHIATRIC: No known history of psychiatric illness. PHYSICAL EXAMINATION: VITAL SIGNS: Temperature is 98.1, heart rate 105, blood pressure 101/56. GENERAL: She is a debilitated woman in no acute distress, oriented x3. HEAD: Normocephalic, atraumatic. Eyes anicteric. NECK: Supple. JVD 6-7 cm. There is no lymphadenopathy. HEART: Regular with soft holosystolic murmur mid chest. The patient PMI is nondisplaced. There is no S3. LUNGS: Coarse at bases. ABDOMEN: Distended, bowel sounds are present. There is no hepatosplenomegaly. GENITOURINARY: Grossly intact. EXTREMITIES: No cyanosis or edema. She has post-CVA changes. LABORATORY DATA: White blood cell count 9.6, 0.5, platelets 258. Sodium 142, potassium is 3. 6. Her BUN is 19, creatinine 0.5. LDL cholesterol is 87. ASSESSMENT AND PLAN: Coronary artery disease. The patient has coronary artery disease equivalent. She had a minimally elevated troponin. As prior, patient is not hemodynamically unstable. I think conservative therapy is expected given overall debilitated state. We will add a small dose of beta pebbles to her regimen to see if she can tolerate. 1. Recent CVA and Dr. Pappas from neurology follows. Continue neurological optimization and care. 2. Heart failure. The patient likely has diastolic dysfunction. Will review echo results from [facility] and follow expectantly. 3. History of recent cerebrovascular accident. Continue conservative care. Family is aware of the prognosis. 4. History of diabetes. Continue diabetic optimization care to get the patient euglycemic. I would like to thank Dr. Ghosh for referring this patient for my evaluation. Dictated By: JUSTIN ODOM MD ML/NTS Conf#: [id number] DID#: [id number]
--- NOTE | 2016-07-28 21:15 | CONS ---
Date/Time of Note Date/Time of Note DATE: 07/28/16 TIME: 21:12 Assessment/Plan Assessment/Plan Additional Assessment/Plan IMPRESSION: 1. Cerebrovascular accident. 2. Dementia. 3. Hypertension. 4 s/p PEG 5.Atrial fibrillation Plan continue present care Consultation Date/Type/Reason Admit Date/Time July 23, 2016 at 18:01 Initial Consult Date 07/25/16 Type of Consultation: Neurology Referring Provider: GIAN HERNANDEZ MD 24 HR Interval Summary Subjective hx not possible: pt non-verbal Constitutional: improved Exam/Review of Systems Vital Signs Vitals Vital Signs Date Time Temp Pulse Resp B/P Pulse Ox O2 Delivery O2 Flow Rate FiO2 07/28/16 20:11 70 07/28/16 20:10 98.7 18 101/55 95 07/26/16 13:02 Room Air 07/26/16 12:30 8.0 Intake and Output 07/27/16 07/27/16 07/28/16 15:00 23:00 07:00 Intake Total 500 ml 520 ml Balance 500 ml 520 ml Exam Constitutional: alert, oriented, well developed Psych: nl mood/affect, no complaints Head: atraumatic, normocephalic Eyes: EOMI, PERRL, nl conjunctiva, nl lids, nl sclera ENMT: nl external ears & nose, nl lips & teeth, nl nasal mucosa & septum Neck: non-tender, supple Respiratory: clear to auscultation, normal air movement Cardiovascular: nl pulses, regular rate and rhythm Gastrointestinal: nl liver, spleen, non-tender, soft Musculoskeletal: nl extremities to inspection, nl gait and stance Extremities: normal pulses Neurological: HOLISTIC PULSER II-XII intact, nl mental status, nl speech, nl strength Skin: nl turgor, No rash or lesions Lymph: nl lymph nodes Results Result Diagram: 07/27/16 0700 07/27/16 0700 Results 24 hrs Laboratory Tests Test 07/28/16 14:47 Troponin I < 0.012 Medications Medications Current Medications Azelastine HCl (Optivar 0.05% Oph) 1 drop DAILY BOTH EYES Last administered on 07/28/16t 09:02; Admin Dose 1 DROP; Start 07/23/16 at 23:45 Bisacodyl (Dulcolax) 5 mg DAILY PRN PO CONSTIPATION; Start 07/23/16 at 21:00 Pantoprazole (Protonix Iv) 40 mg DAILY@06 IV Last administered on 07/28/16 05: 17; Admin Dose 40 MG; Start 07/24/16 at 06:00 Aspirin (Aspirin) 325 mg DAILY GTB Last administered on 07/28/16 09:02; Admin Dose 325 MG; Start 07/24/16 at 09:00 Carvedilol (Coreg) 3.125 mg BID PO ; Start 07/28/16 at 21:00 MACK HAINES MD Jul 28, 2016 21:15
[2016-07-29] VITALS (12 sets, daily range): BP systolic 96–119; BP diastolic 51–63; PULSE 60–90; RESP 17–18
[2016-07-29] MEDS: PANTOPRAZOLE 40 MG INJ IV SCH (05:54)
[2016-07-29] MEDS: ASPIRIN 325 MG TAB GTB SCH (08:58)
[2016-07-29] MEDS: AZELASTINE 0.05% 6 ML OPH BOTH EYES SCH (08:58)
--- NOTE | 2016-07-29 19:20 | PN ---
Date/Time of Note Date/Time of Note DATE: 07/29/16 TIME: 19:19 Assessment/Plan VTE Prophylaxis VTE Prophylaxis Intervention: other Lines/Catheters IV Catheter Type (from Nrs): Saline Lock Urinary Cath still in place: No Assessment/Plan Chief Complaint/Hosp Course cva htn peg plan snf if family agrees Problems: Subjective 24 Hr Interval Summary Subjective hx not possible: other (refused snf) Exam/Review of Systems Vital Signs Vitals Vital Signs Date Time Temp Pulse Resp B/P Pulse Ox O2 Delivery O2 Flow Rate FiO2 07/29/16 16:28 68 07/29/16 16:09 98.4 17 119/63 92 07/26/16 13:02 Room Air 07/26/16 12:30 8.0 Intake and Output 07/28/16 07/28/16 07/29/16 15:00 23:00 07:00 Intake Total 740 ml Balance 740 ml Exam Respiratory: diminished breath sounds Cardiovascular: regular rate and rhythm Gastrointestinal: soft Musculoskeletal: nl extremities to inspection Results Result Diagram: 07/27/16 0700 07/27/16 0700 Medications Medications Current Medications Azelastine HCl (Optivar 0.05% Oph) 1 drop DAILY BOTH EYES Last administered on 07/29/16 08:58; Admin Dose 1 DROP; Start 07/23/16 at 23:45 Bisacodyl (Dulcolax) 5 mg DAILY PRN PO CONSTIPATION; Start 07/23/16 at 21:00 Pantoprazole (Protonix Iv) 40 mg DAILY@06 IV Last administered on 07/29/16 05: 54; Admin Dose 40 MG; Start 07/24/16 at 06:00 Aspirin (Aspirin) 325 mg DAILY GTB Last administered on 07/29/16 08:58; Admin Dose 325 MG; Start 07/24/16 at 09:00 Carvedilol (Coreg) 3.125 mg BID PO Last administered on 07/28/16 23:20; Admin Dose 3.125 MG; Start 07/28/16 at 21:00 GIAN HERNANDEZ MD Jul 29, 2016 19:20
--- NOTE | 2016-07-29 19:23 | CONS ---
Date/Time of Note Date/Time of Note DATE: 07/29/16 TIME: 19:18 Assessment/Plan Assessment/Plan Chief Complaint/Hosp Course IMp: 1.Postive troponin-aT osh ,thus far negative here 2.HTN 3.CVA 4.Dementia 5. Dyslipidemia-Low HDL Recc: -Tele -complete VIOLET here at [facility] -re-asses EF/wall motion with echo unless results obtained from [facility] -Continue asa -Continue BB Problems: Consultation Date/Type/Reason Admit Date/Time July 23, 2016 at 18:01 Initial Consult Date 07/25/16 Type of Consultation: cardiology Reason for Consultation positive cardiac enzymes Referring Provider: GIAN HERNANDEZ MD Exam/Review of Systems Vital Signs Vitals Vital Signs Date Time Temp Pulse Resp B/P Pulse Ox O2 Delivery O2 Flow Rate FiO2 07/29/16 16:28 68 07/29/16 16:09 98.4 17 119/63 92 07/26/16 13:02 Room Air 07/26/16 12:30 8.0 Intake and Output 07/28/16 07/28/16 07/29/16 15:00 23:00 07:00 Intake Total 740 ml Balance 740 ml Exam Review of Systems: CONSTITUTIONAL: No fevers, chills. PULMONARY: No sob CARDIOVASCULAR: No chest pain/palpitations GASTROINTESTINAL: No nausea/vomiting. GENITOURINARY: No hematuria/dysuria. MUSCULOSKELETAL: No myagias/arthalgias. PSYCHIATRIC: The patient denies depression. NEUROLOGIC: No weakness Constitutional: other (sleeping) Psych: no complaints Head: normocephalic ENMT: mucosa pink and moist Neck: jvd (9 cm water), supple Respiratory: diminished breath sounds (at bases/B) Cardiovascular: regular rate and rhythm Gastrointestinal: non-tender, soft Extremities: edema (none) Neurological: other (No focal deficits) Results Result Diagram: 07/27/16 0700 07/27/16 0700 Medications Medications Current Medications Azelastine HCl (Optivar 0.05% Oph) 1 drop DAILY BOTH EYES Last administered on 07/29/16t 08:58; Admin Dose 1 DROP; Start 07/23/16 at 23:45 Bisacodyl (Dulcolax) 5 mg DAILY PRN PO CONSTIPATION; Start 07/23/16 at 21:00 Pantoprazole (Protonix Iv) 40 mg DAILY@06 IV Last administered on 07/29/16 05: 54; Admin Dose 40 MG; Start 07/24/16 at 06:00 Aspirin (Aspirin) 325 mg DAILY GTB Last administered on 07/29/16 08:58; Admin Dose 325 MG; Start 07/24/16 at 09:00 Carvedilol (Coreg) 3.125 mg BID PO Last administered on 07/28/16 23:20; Admin Dose 3.125 MG; Start 07/28/16 at 21:00 CRISTAL MOORE Jul 29, 2016 19:23
--- NOTE | 2016-07-29 20:52 | CONS ---
Date/Time of Note Date/Time of Note DATE: 07/29/16 TIME: 20:51 Assessment/Plan Assessment/Plan Additional Assessment/Plan IMPRESSION: 1. Cerebrovascular accident. 2. Dementia. 3. Hypertension. 4 s/p PEG 5.Atrial fibrillation Plan continue present care discussed with daughter Consultation Date/Type/Reason Admit Date/Time July 23, 2016 at 18:01 Initial Consult Date 07/25/16 Type of Consultation: cardiology Referring Provider: GIAN HERNANDEZ MD 24 HR Interval Summary Constitutional: improved, no complaints Exam/Review of Systems Vital Signs Vitals Vital Signs Date Time Temp Pulse Resp B/P Pulse Ox O2 Delivery O2 Flow Rate FiO2 07/29/16 20:12 98.8 73 18 116/61 93 07/26/16 13:02 Room Air 07/26/16 12:30 8.0 Intake and Output 07/28/16 07/28/16 07/29/16 15:00 23:00 07:00 Intake Total 740 ml Balance 740 ml Results Result Diagram: 07/27/16 0700 07/27/16 0700 Medications Medications Current Medications Azelastine HCl (Optivar 0.05% Oph) 1 drop DAILY BOTH EYES Last administered on 07/29/16 08:58; Admin Dose 1 DROP; Start 07/23/16 at 23:45 Bisacodyl (Dulcolax) 5 mg DAILY PRN PO CONSTIPATION; Start 07/23/16 at 21:00 Pantoprazole (Protonix Iv) 40 mg DAILY@06 IV Last administered on 07/29/16 05: 54; Admin Dose 40 MG; Start 07/24/16 at 06:00 Aspirin (Aspirin) 325 mg DAILY GTB Last administered on 07/29/16 08:58; Admin Dose 325 MG; Start 07/24/16 at 09:00 Carvedilol (Coreg) 3.125 mg BID PO Last administered on 07/28/16 23:20; Admin Dose 3.125 MG; Start 07/28/16 at 21:00 MACK HAINES MD Jul 29, 2016 20:52
[2016-07-30] VITALS (14 sets, daily range): BP systolic 83–121; BP diastolic 50–64; PULSE 57–70; RESP 16–18
[2016-07-30] MEDS: PANTOPRAZOLE 40 MG INJ IV SCH (05:46)
--- NOTE | 2016-07-30 09:21 | CONS ---
Date/Time of Note Date/Time of Note DATE: 07/30/16 TIME: 09:20 Assessment/Plan Assessment/Plan Additional Assessment/Plan 1. Coronary artery disease. The patient has coronary artery disease equivalent. Hemodynamically unstable. I think conservative therapy is expected given overall debilitated state. We will add a small dose of beta pebbles to her regimen to see if she can tolerate. [address] Pappas from neurology follows. Continue neurological optimization and care. 3. Heart failure. The patient likely has diastolic dysfunction. CHRONIC. 3. History of recent cerebrovascular accident. Continue conservative care. Family is aware of the prognosis. 4. History of diabetes. Continue diabetic optimization care to get the patient euglycemic. STABLE. Consultation Date/Type/Reason Admit Date/Time July 23, 2016 at 18:01 Initial Consult Date 07/25/16 Type of Consultation: cardiology Referring Provider: GIAN HERNANDEZ MD 24 HR Interval Summary Free Text/Dictation NO acute events - BP in good range - no CP noted - con't post CVA care. ROS: No fever, no chills, no nausea, no vomiting, no diarrhea/constipation No recent weight changes No chest pain, no PND, no orthopnea No dizziness, blurred vision No thirst, no heat or cold intolerance (per nurse) Exam/Review of Systems Vital Signs Vitals Vital Signs Date Time Temp Pulse Resp B/P Pulse Ox O2 Delivery O2 Flow Rate FiO2 07/30/16 08:54 70 07/30/16 07:17 98.4 16 97/50 96 07/26/16 13:02 Room Air 07/26/16 12:30 8.0 Intake and Output 07/29/16 07/29/16 07/30/16 15:00 23:00 07:00 Intake Total 740 ml 701 ml Balance 740 ml 701 ml Exam General: WN/WD/NAD, AOx 0-1 HEENT: Unicetric/atraumatic/EOMI (does not follow commands) NECK: JVD elevated, no thyromegaly Lymph: no lymphadenopathy HEART: regular with no S3, II/ systolic murmur at apex LUNGS: Coarse sounds ABD: soft, NT, ND, +BS : Intact Neuro: h/o CVA SKIN: chronic changes EXT: trace edema Results Result Diagram: 07/27/16 0700 07/27/16 0700 Results 24 hrs Laboratory Tests Test 07/30/16 01:22 07/30/16 06:10 Troponin I < 0.012 < 0.012 Medications Medications Current Medications Azelastine HCl (Optivar 0.05% Oph) 1 drop DAILY BOTH EYES Last administered on 07/29/16 08:58; Admin Dose 1 DROP; Start 07/23/16 at 23:45 Bisacodyl (Dulcolax) 5 mg DAILY PRN PO CONSTIPATION; Start 07/23/16 at 21:00 Pantoprazole (Protonix Iv) 40 mg DAILY@06 IV Last administered on 07/30/16 05: 46; Admin Dose 40 MG; Start 07/24/16 at 06:00 Aspirin (Aspirin) 325 mg DAILY GTB Last administered on 07/29/16 08:58; Admin Dose 325 MG; Start 07/24/16 at 09:00 Carvedilol (Coreg) 3.125 mg BID PO Last administered on 07/29/16 20:49; Admin Dose 3.125 MG; Start 07/28/16 at 21:00 JUSTIN ODOM MD Jul 30, 2016 09:21
[2016-07-30] MEDS: AZELASTINE 0.05% 6 ML OPH BOTH EYES SCH (09:31)
[2016-07-30] MEDS: ASPIRIN 325 MG TAB GTB SCH (09:31)
[2016-07-30] MEDS ORDERED: ASPI325T4 GTB (16:11)
[2016-07-30] MEDS ORDERED: CARV3.1260 PO (16:11)
--- NOTE | 2016-07-30 22:21 | CONS ---
Date/Time of Note Date/Time of Note DATE: 07/30/16 TIME: 22:20 Assessment/Plan Assessment/Plan Additional Assessment/Plan IMPRESSION: 1. Cerebrovascular accident. 2. Dementia. 3. Hypertension. 4 s/p PEG 5.Atrial fibrillation Plan continue present care discussed with daughter Consultation Date/Type/Reason Admit Date/Time July 23, 2016 at 18:01 Initial Consult Date 07/25/16 Type of Consultation: cardiology Referring Provider: GIAN HERNANDEZ MD 24 HR Interval Summary Constitutional: no complaints Exam/Review of Systems Vital Signs Vitals Vital Signs Date Time Temp Pulse Resp B/P Pulse Ox O2 Delivery O2 Flow Rate FiO2 07/30/16 20:23 58 07/30/16 20:03 98.4 16 101/59 95 07/26/16 13:02 Room Air 07/26/16 12:30 8.0 Intake and Output 07/29/16 07/29/16 07/30/16 15:00 23:00 07:00 Intake Total 740 ml 701 ml Balance 740 ml 701 ml Exam Constitutional: alert, oriented, well developed Psych: nl mood/affect, no complaints Head: atraumatic, normocephalic Eyes: EOMI, PERRL, nl conjunctiva, nl lids, nl sclera ENMT: nl external ears & nose, nl lips & teeth, nl nasal mucosa & septum Neck: non-tender, supple Respiratory: clear to auscultation, normal air movement Cardiovascular: nl pulses, regular rate and rhythm Gastrointestinal: nl liver, spleen, non-tender, soft Musculoskeletal: nl extremities to inspection, nl gait and stance Extremities: normal pulses Neurological: TECHNICAL ANALYST II-XII intact, nl mental status, nl speech, nl strength Skin: nl turgor, No rash or lesions Lymph: nl lymph nodes Results Result Diagram: 07/27/16 0700 07/27/16 0700 Results 24 hrs Laboratory Tests Test 07/30/16 01:22 07/30/16 06:10 Troponin I < 0.012 < 0.012 Medications Medications Current Medications Azelastine HCl (Optivar 0.05% Oph) 1 drop DAILY BOTH EYES Last administered on 07/30/16t 09:31; Admin Dose 1 DROP; Start 07/23/16 at 23:45 Bisacodyl (Dulcolax) 5 mg DAILY PRN PO CONSTIPATION; Start 07/23/16 at 21:00 Pantoprazole (Protonix Iv) 40 mg DAILY@06 IV Last administered on 07/30/16 05: 46; Admin Dose 40 MG; Start 07/24/16 at 06:00 Aspirin (Aspirin) 325 mg DAILY GTB Last administered on 07/30/16 09:31; Admin Dose 325 MG; Start 07/24/16 at 09:00 Carvedilol (Coreg) 3.125 mg BID PO Last administered on 07/29/16 20:49; Admin Dose 3.125 MG; Start 07/28/16 at 21:00 MACK HAINES MD Jul 30, 2016 22:21
--- NOTE | 2016-07-30 22:39 | PN ---
Date/Time of Note Date/Time of Note DATE: 07/30/16 TIME: 22:38 Assessment/Plan VTE Prophylaxis VTE Prophylaxis Intervention: other Lines/Catheters [facility] Saline Lock Urinary Cath still in place: No Assessment/Plan Chief Complaint/Hosp Course cva htn peg plan home family refused snf Problems: Subjective 24 Hr Interval Summary Respiratory: no complaints Cardiovascular: no complaints Exam/Review of Systems Vital Signs Vitals Vital Signs Date Time Temp Pulse Resp B/P Pulse Ox O2 Delivery O2 Flow Rate FiO2 07/30/16 20:23 58 07/30/16 20:03 98.4 16 101/59 95 07/26/16 13:02 Room Air 07/26/16 12:30 8.0 Intake and Output 07/29/16 07/29/16 07/30/16 15:00 23:00 07:00 Intake Total 740 ml 701 ml Balance 740 ml 701 ml Exam Neck: supple Respiratory: clear to auscultation Cardiovascular: regular rate and rhythm Gastrointestinal: bowel sounds, soft Musculoskeletal: nl extremities to inspection Results Result Diagram: 07/27/16 0700 07/27/16 0700 Results 24 hrs Laboratory Tests Test 07/30/16 01:22 07/30/16 06:10 Troponin I < 0.012 < 0.012 Medications Medications Current Medications Azelastine HCl (Optivar 0.05% Oph) 1 drop DAILY BOTH EYES Last administered on 07/30/16 09:31; Admin Dose 1 DROP; Start 07/23/16 at 23:45 Bisacodyl (Dulcolax) 5 mg DAILY PRN PO CONSTIPATION; Start 07/23/16 at 21:00 Pantoprazole (Protonix Iv) 40 mg DAILY@06 IV Last administered on 07/30/16 05: 46; Admin Dose 40 MG; Start 07/24/16 at 06:00 Aspirin (Aspirin) 325 mg DAILY GTB Last administered on 07/30/16 09:31; Admin Dose 325 MG; Start 07/24/16 at 09:00 Carvedilol (Coreg) 3.125 mg BID PO Last administered on 07/29/16 20:49; Admin Dose 3.125 MG; Start 07/28/16 at 21:00 GIAN HERNANDEZ MD Jul 30, 2016 22:39
[2016-07-31] VITALS (9 sets, daily range): BP systolic 90–95; BP diastolic 50–60; PULSE 57–66; RESP 16–18
[2016-07-31] MEDS: PANTOPRAZOLE 40 MG INJ IV SCH (05:14)
[2016-07-31] MEDS: AZELASTINE 0.05% 6 ML OPH BOTH EYES SCH (08:18)
[2016-07-31] MEDS: ASPIRIN 325 MG TAB GTB SCH (08:18)
--- NOTE | 2016-07-31 14:12 | CONS ---
Date/Time of Note Date/Time of Note DATE: 07/31/16 TIME: 14:08 Assessment/Plan Assessment/Plan Chief Complaint/Hosp Course IMp: 1.Postive troponin-neg trop x 3 2.HTN-Hotn borderline 3.CVA 4.Dementia 5. Dyslipidemia-Low HDL Recc: -Tele -Continue asa -Continue BB as tolerated only -Will f/u echo -pnding PEG Problems: Consultation Date/Type/Reason Admit Date/Time July 23, 2016 at 18:01 Initial Consult Date 07/25/16 Type of Consultation: cardiology Reason for Consultation AF Referring Provider: GIAN HERNANDEZ MD Exam/Review of Systems Vital Signs Vitals Vital Signs Date Time Temp Pulse Resp B/P Pulse Ox O2 Delivery O2 Flow Rate FiO2 07/31/16 12:18 57 07/31/16 11:16 98.0 16 90/50 96 Intake and Output 07/30/16 07/30/16 07/31/16 15:00 23:00 07:00 Intake Total 920 ml 800 ml Balance 920 ml 800 ml Exam Review of Systems: CONSTITUTIONAL: No fevers, chills. PULMONARY: No sob CARDIOVASCULAR: No chest pain/palpitations GASTROINTESTINAL: No nausea/vomiting. GENITOURINARY: No hematuria/dysuria. MUSCULOSKELETAL: No myagias/arthalgias. PSYCHIATRIC: The patient denies depression. NEUROLOGIC: No weakness Constitutional: alert Psych: no complaints Head: normocephalic ENMT: mucosa pink and moist Neck: jvd, supple Respiratory: diminished breath sounds (at bases/B) Cardiovascular: irregular rhythm Gastrointestinal: non-tender, soft Musculoskeletal: muscle tone (normal) Extremities: edema (none) Neurological: other (Non focal deficits) Results Result Diagram: 07/27/16 0700 07/27/16 0700 Medications Medications Current Medications Azelastine HCl (Optivar 0.05% Oph) 1 drop DAILY BOTH EYES Last administered on 07/31/16 08:18; Admin Dose 1 DROP; Start 07/23/16 at 23:45 Bisacodyl (Dulcolax) 5 mg DAILY PRN PO CONSTIPATION; Start 07/23/16 at 21:00 Pantoprazole (Protonix Iv) 40 mg DAILY@06 IV Last administered on 07/31/16 05: 14; Admin Dose 40 MG; Start 07/24/16 at 06:00 Aspirin (Aspirin) 325 mg DAILY GTB Last administered on 07/31/16 08:18; Admin Dose 325 MG; Start 07/24/16 at 09:00 Carvedilol (Coreg) 3.125 mg BID PO Last administered on 07/29/16 20:49; Admin Dose 3.125 MG; Start 07/28/16 at 21:00 CRISTAL MOORE Jul 31, 2016 14:12
--- NOTE | 2016-07-31 16:03 | RADRPT ---
Echocardiogram Report Patient Name: BRIT PRAKASH Gender: Female Date: 1935 Study Date: 30-Jul-2016 Doctorate Of Chiropractic: [facility] Location: [id number] Ref. Physician: CRISTAL CADENA Quality: Technically Difficult Study Procedures: Transthoracic echocardiogram with complete 2D, M-Mode, and doppler examination. Indications: Positive Troponin. 2D/M Mode Doppler Measurement Value Normal Ranges Measurement Value Normal Ranges LVIDd 2D 3.1 3.5 - 5.6 cm AV Peak Regan 1.4 m/sec LVIDs 2D 2.2 2.1 - 4.1 cm AV Peak PG 8.0 mmHg LVPWd 2D 1.1 0.6 - 1.1 cm LVOT Peak Regan 1.2 m/sec IVSd 2D 1.1 0.6 - 1.1 cm LVOT Peak PG 5.7 mmHg AoR Diam 2D 2.3 2.0 - 3.7 cm MV E Peak Regan 0.7 m/sec EDV 2D 36.5 cm3 MV A Peak Regan 1.0 m/sec ESV 2D 9.9 cm3 MV E/A 0.7 LA Dimen 2D 3.3 2.3 - 4.0 cm MV Decel Time 279 msec MV Decel [place] 2 MV E/A 0.7 Findings Left Ventricle: Normal left ventricular systolic function. Normal left ventricular cavity size. Left ventricular wall thickness upper limits of normal. Ejection fraction is visually estimated at 6065 %. Tissue Doppler/Mitral Doppler indices are consistent with impaired relaxation (Stage I diastolic dysfunction). Right Ventricle: Normal right ventricular size. Normal right ventricular systolic function. Left Atrium: The left atrium is normal in size. Right Atrium: The right atrium is normal in size. Mitral Valve: Mild mitral leaflet calcification. Trace mitral regurgitation. Aortic Valve: No significant aortic stenosis or insufficiency. Aortic valve not well visualized. Tricuspid Valve: Normal appearance and function of the tricuspid valve with trace physiologic regurgitation. Unable to obtain RVSP due to minimal presence of tricuspid regurgitation. Pulmonic Valve: Pulmonic valve not well visualized. There is trace pulmonic regurgitation. Pericardium: Normal pericardium with no significant pericardial effusion. Aorta: Normal aortic root. IVC: Normal size and normal respiratory collapse consistent with normal right atrial pressure. Conclusions 1.Normal left ventricular systolic function. Normal left ventricular cavity size. Left ventricular wall thickness upper limits of normal. Ejection fraction is visually estimated at 60-65 %. Tissue Doppler/Mitral Doppler indices are consistent with impaired relaxation (Stage I diastolic dysfunction). 2.Mild mitral leaflet calcification. Trace mitral regurgitation. 3.Normal appearance and function of the tricuspid valve with trace physiologic regurgitation. Unable to obtain RVSP due to minimal presence of tricuspid regurgitation. 4.Pulmonic valve not well visualized. There is trace pulmonic regurgitation. Electronically Signed By: Cristal Cadena 31-Jul-2016 16:02:23 -0700 Patient Name: BRIT PRAKASH Study Date: 30-Jul-2016 [id number]
--- NOTE | 2016-07-31 20:26 | CONS ---
Date/Time of Note Date/Time of Note DATE: 07/31/16 TIME: 20:24 Assessment/Plan Assessment/Plan Additional Assessment/Plan IMPRESSION: 1. Cerebrovascular accident. 2. Dementia. 3. Hypertension. 4 s/p PEG 5.Atrial fibrillation Plan continue present care post PEG care explained to the family. pt. was seen in the afternoon Consultation Date/Type/Reason Admit Date/Time July 23, 2016 at 18:01 Initial Consult Date 07/25/16 Type of Consultation: cardiology Referring Provider: GIAN HERNANDEZ MD 24 HR Interval Summary Constitutional: improved Exam/Review of Systems Vital Signs Vitals Vital Signs Date Time Temp Pulse Resp B/P Pulse Ox O2 Delivery O2 Flow Rate FiO2 07/31/16 16:14 64 07/31/16 11:16 98.0 16 90/50 96 Intake and Output 07/30/16 07/30/16 07/31/16 15:00 23:00 07:00 Intake Total 920 ml 800 ml Balance 920 ml 800 ml Exam Constitutional: alert, oriented, well developed Psych: nl mood/affect, no complaints Head: atraumatic, normocephalic Eyes: EOMI, PERRL, nl conjunctiva, nl lids, nl sclera ENMT: nl external ears & nose, nl lips & teeth, nl nasal mucosa & septum Neck: non-tender, supple Respiratory: clear to auscultation, normal air movement Cardiovascular: nl pulses, regular rate and rhythm Gastrointestinal: nl liver, spleen, non-tender, soft Musculoskeletal: nl extremities to inspection, nl gait and stance Extremities: normal pulses Neurological: INSURANCE COORDINATOR II-XII intact, nl mental status, nl speech, nl strength Skin: nl turgor, No rash or lesions Lymph: nl lymph nodes Results Result Diagram: 07/27/16 0700 07/27/16 0700 MACK HAINES MD Jul 31, 2016 20:26
--- NOTE | 2016-08-03 17:30 | QN ---
Documentation Comment [id number] GIAN HERNANDEZ MD Aug 03, 2016 17:30
--- NOTE | 2016-08-03 19:41 | DS ---
DATE OF ADMISSION: 07/23/2016 DATE OF DISCHARGE: 07/31/2016 HOSPITAL COURSE: The patient was admitted with acute stroke, and was seen by Dr. Pappas in consultation. His recommendation was to continue Keppra. The patient also has a history of diabetes mellitus and hypertension. The patient had a right hemispheric infarct resulting in left-sided weakness. The patient has dysphagia requiring G-tube placement. The patient's family refused senior living. The patient will be going home at the time of discharge. DISCHARGE DIAGNOSES: Include: 1. Cerebrovascular accident. 2. Left-sided hemiplegia. 3. Dementia. 4. Hypertension. 5. Atrial fibrillation. 6. History of G-tube placement. 7. Atherosclerotic heart disease. DISCHARGE MEDICATIONS: Continue on aspirin, Coreg, Ditropan, eyedrops, bisacodyl, lisinopril. FOLLOWUP: The patient to follow up with PCP, Dr. Pappas and _as an outpatient. DISPOSITION: The patient is stable at the time of discharge. Dictated By: GIAN TIDWELL/RHONA Conf#: [id number] DID#: [id number] MTDD
== END 2016-07-31 19:01 | disposition home or self-care (01) | DRG 65 ==
LOC: MS4 18:01
PROVIDERS: ADMIT Internal Medicine Nephrology; ATTEND Internal Medicine Nephrology
PROC: 0DH63UZ Insertion of Feeding Device into Stomach, Percutaneous Approach (ICD-10-PCS; principal; 2016-07-26 11:30)
DX: I63.8 Other cerebral infarction (principal); G81.94 Hemiplegia, unspecified affecting left nondominant side; F03.90 Unspecified dementia, unspecified severity, without behavioral disturbance, psychotic disturbance, mood disturbance, and anxiety; R13.10 Dysphagia, unspecified; I10 Essential (primary) hypertension; D64.9 Anemia, unspecified; E11.9 Type 2 diabetes mellitus without complications; I25.10 Atherosclerotic heart disease of native coronary artery without angina pectoris; I48.91 Unspecified atrial fibrillation; E78.5 Hyperlipidemia, unspecified; R79.89 Other specified abnormal findings of blood chemistry
CPT/HCPCS: 70551; 71010; 80048; 80053; 80061; 83036; 84484; 85025; 87081; 93005; 93306; 97162; C9113; J0690

== ENCOUNTER 2016-09-11 11:52 | Inpatient (IN) | payer OTHER ==
[~2016-09-11] VITALS: Ht 157.5 cm; Wt 64.0 kg
[~2016-09-11 11:52] MED LIST: ASPI325T4 GTB; BISA5TAB6 PO; CARV3.1260 PO; LISI10TA2 PO; OPTI5OP6 BOTH EYES; OXYB5TAB7 NGT
[2016-09-11 16:22] VITALS: Ht 157.5 cm; Wt 64.0 kg
[2016-09-11 16:31] VITALS: BP 120/60; PULSE 70; RESP 18
[2016-09-11] MEDS ORDERED: NITROGLYCERIN (SL) 0.4 MG TAB SL PRN (18:30)
[2016-09-11] MEDS ORDERED: SENNA TAB GTB PRN (18:30)
[2016-09-11] MEDS ORDERED: ONDANSETRON 4 MG INJ IV PRN (18:30)
[2016-09-11] MEDS ORDERED: ACETAMINOPHEN 325 MG TAB GTB PRN (18:30)
[2016-09-11] MEDS ORDERED: BISACODYL 10 MG SUPP PR PRN (18:30)
[2016-09-11 20:01] VITALS: BP 133/72; RESP 17
[2016-09-11] MEDS: DOCUSATE SODIUM 10 MG/ML (10ML CUP) GTB SCH (21:17)
[2016-09-11] MEDS: CEFTRIAXONE 1 GM/50 ML (PMX) 50 ML IVPB SCH (21:17)
[2016-09-11] MEDS: OXYBUTYNIN 5 MG TAB GTB SCH (21:18)
--- NOTE | 2016-09-11 22:33 | PN ---
Date/Time of Note Date/Time of Note DATE: 09/11/16 TIME: 22:31 Assessment/Plan VTE Prophylaxis VTE Prophylaxis Intervention: other Lines/Catheters [facility] Saline Lock Urinary Cath still in place: No Assessment/Plan Chief Complaint/Hosp Course uti peg hx cva htn plan antibiotic Problems: Subjective 24 Hr Interval Summary Respiratory: no complaints Cardiovascular: no complaints Gastrointestinal: no complaints Genitourinary: no complaints Musculoskeletal: no complaints Exam/Review of Systems Vital Signs Vitals Vital Signs Date Time Temp Pulse Resp B/P Pulse Ox O2 Delivery O2 Flow Rate FiO2 09/11/16 20:01 98.0 69 17 133/72 97 09/11/16 16:31 Room Air Exam Head: normocephalic Eyes: nl conjunctiva ENMT: nl external ears & nose Neck: supple Respiratory: clear to auscultation, normal air movement Cardiovascular: regular rate and rhythm Gastrointestinal: soft Musculoskeletal: nl extremities to inspection, nl gait and stance Medications Medications Current Medications Acetaminophen (Tylenol Tab) 325 mg Q4H PRN GTB PAIN AND OR ELEVATED TEMP; Start 09/11/16 at 18:30 Aspirin (Aspirin) 300 mg DAILY IN ; Start 09/12/16 at 09:00 Azelastine HCl (Optivar 0.05% Oph) 1 drop DAILY BOTH EYES ; Start 09/12/16 at 09 :00 Bisacodyl (Dulcolax Supp) 10 mg DAILY PRN IN CONSTIPATION; Start 09/11/16 at 18 :30 Carvedilol (Coreg) 3.125 mg DAILY GTB ; Start 09/12/16 at 09:00 Lisinopril (Zestril) 10 mg DAILY GTB ; Start 09/12/16 at 09:00 Nitroglycerin (Nitroglycerin (Sl Tab) 0.4 Mg) 1 tab Q5M PRN SL ANGINA; Start at 18:30 Oxybutynin Chloride (Ditropan) 5 mg TID GTB Last administered on 09/11/16 21: 18; Admin Dose 5 MG; Start 09/11/16 at 21:00 Pantoprazole 40 mg 40 mg DAILY@06 IV ; Start 09/12/16 at 06:00 Ceftriaxone Sodium (Rocephin) 50 ml @ 100 mls/hr Q24H IVPB Last administered on 09/11/16 21:17; Admin Dose 100 MLS/HR; Start 09/11/16 at 21:00 Docusate Sodium (Colace Liquid Cup) 100 mg BID GTB Last administered on 21:17; Admin Dose 100 MG; Start 09/11/16 at 21:00 Ondansetron HCl (Zofran Inj) 4 mg Q4H PRN IV NAUSEA AND/OR VOMITING; Start at 18:30 Senna (Senokot) 1 tab DAILY PRN GTB CONSTIPATION; Start 09/11/16 at 18:30 GIAN HERNANDEZ MD Sep 11, 2016 22:32
[2016-09-12 00:14] LABS: AADO2 Arterial 69.9 mmHg (7.0-24.0); Allen Test ACCEPTAB; Arterial Base Excess 0.5 mmol/L (-3.0-3); Arterial COHb 0.5 % (0.0-3.0); Arterial Fraction of Oxyhgb 96.6 % (93.0-99.0); Arterial HCO3 24.2 mmol/L (22.0-26.0); Arterial MetHb 0 % (0.0-1.5); Arterial Total Hemglobin 12.5 g/dl (12.0-18.0); MODE NASAL CANNULA
[2016-09-12] MEDS: ALBUTEROL/IPRATROPIUM (NEB) 3 ML AMP HHN PRN ×2 (00:27→22:23)
[2016-09-12 02:01] VITALS: BP 104/61; RESP 17
[2016-09-12] MEDS: PANTOPRAZOLE 40 MG INJ IV SCH (05:34)
[2016-09-12 06:26] LABS: ADD SCAN DIFF NO
[2016-09-12 06:38] LABS: BASOPHILS % 0.5 % (0.0-2.0); EOSINOPHILS # 0.4 10^3/ul (0.0-0.5); EOSINOPHILS % 6.2 % (0.0-7.0); HEMATOCRIT 34.5 % (37.0-47.0); HEMOGLOBIN 10.6 g/dl (12.0-16.0); LYMPHOCYTES # 2.3 10^3/ul (0.8-2.9); LYMPHOCYTES % 34.8 % (15.0-51.0); MEAN CORPUSCULAR HEMOGLOBIN 29.1 pg (29.0-33.0); MEAN CORPUSCULAR HGB CONC 30.7 g/dl (32.0-37.0); MEAN CORPUSCULAR VOLUME 94.8 fl (82.0-101.0); MEAN PLATELET VOLUME 12.4 fl (7.4-10.4); MONOCYTE # 0.4 10^3/ul (0.3-0.9); MONOCYTES % 6.2 % (0.0-11.0); NEUTROPHIL # 3.5 10^3/ul (1.6-7.5); PLATELET COUNT 209 10^3/UL (140-415); RED BLOOD COUNT 3.64 10^6/ul (4.20-5.40); RED CELL DISTRIBUTION WIDTH 14.5 % (11.5-14.5); WHITE BLOOD COUNT 6.6 10^3/ul (4.8-10.8)
[2016-09-12 07:08] LABS: CALCIUM 8.3 mg/dl (8.4-10.2); CREATININE 0.57 mg/dl (0.44-1.00)
[2016-09-12 08:15] VITALS: BP 110/65; RESP 20
[2016-09-12] MEDS: AZELASTINE 0.05% 6 ML OPH BOTH EYES SCH (08:32)
[2016-09-12] MEDS: ASPIRIN 300 MG SUPP PR SCH (08:32)
[2016-09-12] MEDS: DOCUSATE SODIUM 10 MG/ML (10ML CUP) GTB SCH ×2 (08:32→21:18)
[2016-09-12] MEDS: OXYBUTYNIN 5 MG TAB GTB SCH ×3 (08:33→21:18)
[2016-09-12] MEDS: LISINOPRIL 10 MG TAB GTB SCH (08:33)
--- NOTE | 2016-09-12 13:30 | RADRPT ---
PROCEDURE: XR Chest. CLINICAL INDICATION: Urinary tract infection TECHNIQUE: Portable frontal view of the chest was obtained. COMPARISON: Chest x-ray 07/23/2016 FINDINGS: There are low lung volumes with compressive changes at the lung bases. The cardiomediastinal silhou ette is within normal limits. No pneumothorax or significant pleural effusion is seen. There are degenerative changes of the visualized spine. There is levoscoliosis of the lower thoraci c spine. IMPRESSION: 1. Low lung volumes with bibasilar compressive atelectasis. 2. Degenerative changes of the spine with levoscoliosis of the lower thoracic spine. RPTAT: PP Physician Alexandra Date Time Electronically viewed and signed by Physician Alexandra on 09/12/2016 13:29 /
[2016-09-12 14:00] VITALS: BP 97/53; RESP 16
[2016-09-12 14:04] LABS: ADD UMIC YES; UR ASCORBIC ACID 20 mg/dL (NEGATIVE); UR BACTERIA FEW /HPF (NONE SEEN); UR BILIRUBIN (Dip) NEGATIVE (NEGATIVE); UR BLOOD (Dip) 3+ mg/dL (NEGATIVE); UR CLARITY SLIGHTLY CLOUDY (CLEAR); UR COLOR YELLOW (YELLOW); UR GLUCOSE (Dip) NEGATIVE (NEGATIVE); UR KETONES (Dip) NEGATIVE (NEGATIVE); UR LEUKOCYTE ESTERASE (Dip) 2+ Leu/ul (NEGATIVE); UR NITRITE (Dip) NEGATIVE (NEGATIVE); UR RBC > 182 /HPF (0-5); UR SPECIFIC GRAVITY (Dip) 1.013 (1.003-1.030); UR TOTAL PROTEIN (Dip) 1+ mg/dl (NEGATIVE); UR UROBILINOGEN (Dip) 1+ mg/dL (NEGATIVE)
--- NOTE | 2016-09-12 17:55 | PN ---
Date/Time of Note Date/Time of Note DATE: 09/12/16 TIME: 17:53 Assessment/Plan VTE Prophylaxis VTE Prophylaxis Intervention: SCD's Lines/Catheters IV Catheter Type (from Nrs): Saline Lock Urinary Cath still in place: Yes Reason Cath still needed: other (indicate) Assessment/Plan Chief Complaint/Hosp Course uti peg hx cva htn plan antibiotic peg water [id number] Problems: Subjective 24 Hr Interval Summary Respiratory: no complaints Exam/Review of Systems Vital Signs Vitals Vital Signs Date Time Temp Pulse Resp B/P Pulse Ox O2 Delivery O2 Flow Rate FiO2 09/12/16 14:00 98.0 61 16 97/53 98 09/12/16 08:33 Nasal Cannula 2.0 Intake and Output 09/11/16 09/11/16 09/12/16 15:00 23:00 07:00 Intake Total 50 ml 660 ml Balance 50 ml 660 ml Exam Respiratory: clear to auscultation Cardiovascular: regular rate and rhythm Gastrointestinal: soft Results Result Diagram: 09/12/16 0539 09/12/16 0539 Results 24 hrs Laboratory Tests Test 09/11/16 23:45 09/12/16 05:39 09/12/16 11:20 Blood Gas Specimen Source Blood arterial Arterial Blood Date Drawn 09/12/2016 12:01:30 AM Arterial Blood pH (Temp corrected) 7.450 Arterial Blood pCO2 (Temp correct) 35.6 Arterial Blood pO2 (Temp corrected) 95.0 H Arterial Blood HCO3 24.2 Arterial Blood Base Excess 0.5 Arterial Blood Oxygen Saturation 97.1 Sam Test ACCEPTAB Arterial Blood Gas Puncture Site Right Radial Arterial Blood Carboxyhemoglobin 0.5 Arterial Blood Methemoglobin 0 Blood Gas A-a O2 Differential 69.9 H Oxyhemoglobin Percent 96.6 Total Hemoglobin 12.5 Blood Gas Temperature 37.0 Blood Gas Modality NASAL CANNULA FiO2 29.0 Blood Gas Notified Whom AA Blood Gas Notified Time 09/12/2016 12:14:19 AM White Blood Count 6.6 # Red Blood Count 3.64 #L Hemoglobin 10.6 #L Hematocrit 34.5 L Mean Corpuscular Volume 94.8 Mean Corpuscular Hemoglobin 29.1 Mean Corpuscular Hemoglobin Concent 30.7 L Red Cell Distribution Width 14.5 Platelet Count 209 Mean Platelet Volume 12.4 #H Neutrophils % 52.0 Lymphocytes % 34.8 Monocytes % 6.2 Eosinophils % 6.2 Basophils % 0.5 Nucleated Red Blood Cells % 0.0 Neutrophils # 3.5 Lymphocytes # 2.3 Monocytes # 0.4 Eosinophils # 0.4 Basophils # 0.0 Nucleated Red Blood Cells # 0.0 Sodium Level 151 H Potassium Level 4.0 Chloride Level 113 H Carbon Dioxide Level 26 Anion Gap 16 Blood Urea Nitrogen 42 H Creatinine 0.57 Glucose Level 97 Calcium Level 8.3 L Urine Color YELLOW Urine Clarity SLIGHTLY CLOUDY A Urine pH 7.0 Urine Specific [place] 1.013 Urine Ketones NEGATIVE Urine Nitrite NEGATIVE Urine Bilirubin NEGATIVE Urine Urobilinogen 1+ H Urine Leukocyte Esterase 2+ H Urine Microscopic RBC > 182 H Urine Microscopic WBC 91 H Urine Bacteria FEW A Urine Hemoglobin 3+ H Urine Glucose NEGATIVE Urine Total Protein 1+ H Medications Medications Current Medications Acetaminophen (Tylenol Tab) 325 mg Q4H PRN GTB PAIN AND OR ELEVATED TEMP; Start 09/11/16 at 18:30 Aspirin (Aspirin) 300 mg DAILY [place] Last administered on 09/12/16 08:32; Admin Dose 300 MG; Start 09/12/16 at 09:00 Azelastine HCl (Optivar 0.05% Oph) 1 drop DAILY BOTH EYES Last administered on 09/12/16 08:32; Admin Dose 1 DROP; Start 09/12/16 at 09:00 Bisacodyl (Dulcolax Supp) 10 mg DAILY PRN [place] CONSTIPATION; Start 09/11/16 at 18 :30 Carvedilol (Coreg) 3.125 mg DAILY GTB Last administered on 09/12/16 08:35; Admin Dose 3.125 MG; Start 09/12/16 at 09:00 Lisinopril (Zestril) 10 mg DAILY GTB Last administered on 09/12/16 08:33; Admin Dose 10 MG; Start 09/12/16 at 09:00 Nitroglycerin (Nitroglycerin (Sl Tab) 0.4 Mg) 1 tab Q5M PRN SL ANGINA; Start at 18:30 Oxybutynin Chloride (Ditropan) 5 mg TID GTB Last administered on 09/12/16 12: 42; Admin Dose 5 MG; Start 09/11/16 at 21:00 Pantoprazole 40 mg 40 mg DAILY@06 IV Last administered on 09/12/16 05:34; Admin Dose 40 MG; Start 09/12/16 at 06:00 Ceftriaxone Sodium (Rocephin) 50 ml @ 100 mls/hr Q24H IVPB Last administered on 09/11/16 21:17; Admin Dose 100 MLS/HR; Start 09/11/16 at 21:00 Docusate Sodium (Colace Liquid Cup) 100 mg BID GTB Last administered on 08:32; Admin Dose 100 MG; Start 09/11/16 at 21:00 Ondansetron HCl (Zofran Inj) 4 mg Q4H PRN IV NAUSEA AND/OR VOMITING; Start at 18:30 Senna (Senokot) 1 tab DAILY PRN GTB CONSTIPATION; Start 09/11/16 at 18:30 GIAN HERNANDEZ MD Sep 12, 2016 17:55
[2016-09-12 20:01] VITALS: BP 111/57; RESP 17
--- NOTE | 2016-09-12 20:17 | CONS ---
Date/Time of Note Date/Time of Note DATE: 09/12/16 TIME: 20:06 Assessment/Plan Assessment/Plan Chief Complaint/Hosp Course 81-year-old female admitted to the hospital because of altered mental status and weakness as noted by her daughter, patient diagnosed with urinary tract infection Problems: Additional Assessment/Plan Urine culture has been sent, patient does have an indwelling Nieto catheter we will keep it in. Continue the ceftriaxone Consultation Date/Type/Reason Admit Date/Time Sep 11, 2016 at 16:06 Date of Consultation: Sep 12, 2016 Type of Consultation: Urology Reason for Consultation Urinary tract infection Referring Provider: GIAN HERNANDEZ MD Hx of Present Illness 81-year-old female who has a history of a stroke with right hemiplegia and lives at home with her daughter was noticed at home to be weaker and her speech was also altered she was brought to the hospital and admitted with a diagnosis of urinary tract infection. Patient does have Alzheimer disease and dementia and history of hypertension. She also does have a PEG tube for feeding. At home her daughter was using a diaper for her and she has been urinating in the diaper as well as having bowel movements. The patient is a 10 para 10 normal deliveries, no C-sections Constitutional: no complaints Eyes: no complaints ENT: no complaints Respiratory: no complaints, No cough, No wheezing Cardiovascular: no complaints, No chest pain Gastrointestinal: no complaints, No nausea, No vomiting Genitourinary: no complaints, other (Has an indwelling Nieto catheter now) Musculoskeletal: no complaints Skin: no complaints Neurologic: focal-weakness (Right sided hemiparesis, the right lower extremity is very stiff and very difficult to flex the knee) Endocrine: no complaints Lymphatic: no complaints Psychological: no complaints Past Medical History Medical History: hypertension, urinary tract infection, other (Cerebrovascular accident with right hemiparesis) Past Surgical History Past Surgical Hx: other (G-tube placement) Family History Significant Family History: no pertinent family hx Social History Alcohol Use: none Smoking Status: Never smoker Drug Use: none Exam/Review of Systems Vital Signs Vitals Vital Signs Date Time Temp Pulse Resp B/P Pulse Ox O2 Delivery O2 Flow Rate FiO2 09/12/16 14:00 98.0 61 16 97/53 98 09/12/16 08:33 Nasal Cannula 2.0 Intake and Output 09/11/16 09/11/16 09/12/16 15:00 23:00 07:00 Intake Total 50 ml 660 ml Balance 50 ml 660 ml Exam Constitutional: frail Psych: no complaints Head: normocephalic Eyes: nl conjunctiva ENMT: nl external ears & nose Neck: non-tender, supple Respiratory: normal air movement Cardiovascular: regular rate and rhythm, No edema Gastrointestinal: other (G-tube in place), soft Genitourinary - Female: other (Indwelling Nieto catheter draining clear urine with some blood-tinged urine noted in the tubing) Musculoskeletal: range of motion (Limited range of motion in the right lower extremity) Extremities: No edema Skin: nl turgor Results Result Diagram: 09/12/16 0539 09/12/16 0539 Results 24 hrs Laboratory Tests Test 09/11/16 23:45 09/12/16 05:39 09/12/16 11:20 Blood Gas Specimen Source Blood arterial Arterial Blood Date Drawn 09/12/2016 12:01:30 AM Arterial Blood pH (Temp corrected) 7.450 Arterial Blood pCO2 (Temp correct) 35.6 Arterial Blood pO2 (Temp corrected) 95.0 H Arterial Blood HCO3 24.2 Arterial Blood Base Excess 0.5 Arterial Blood Oxygen Saturation 97.1 Sam Test ACCEPTAB Arterial Blood Gas Puncture Site Right Radial Arterial Blood Carboxyhemoglobin 0.5 Arterial Blood Methemoglobin 0 Blood Gas A-a O2 Differential 69.9 H Oxyhemoglobin Percent 96.6 Total Hemoglobin 12.5 Blood Gas Temperature 37.0 Blood Gas Modality NASAL CANNULA FiO2 29.0 Blood Gas Notified Whom AA Blood Gas Notified Time 09/12/2016 12:14:19 AM White Blood Count 6.6 # Red Blood Count 3.64 #L Hemoglobin 10.6 #L Hematocrit 34.5 L Mean Corpuscular Volume 94.8 Mean Corpuscular Hemoglobin 29.1 Mean Corpuscular Hemoglobin Concent 30.7 L Red Cell Distribution Width 14.5 Platelet Count 209 Mean Platelet Volume 12.4 #H Neutrophils % 52.0 Lymphocytes % 34.8 Monocytes % 6.2 Eosinophils % 6.2 Basophils % 0.5 Nucleated Red Blood Cells % 0.0 Neutrophils # 3.5 Lymphocytes # 2.3 Monocytes # 0.4 Eosinophils # 0.4 Basophils # 0.0 Nucleated Red Blood Cells # 0.0 Sodium Level 151 H Potassium Level 4.0 Chloride Level 113 H Carbon Dioxide Level 26 Anion Gap 16 Blood Urea Nitrogen 42 H Creatinine 0.57 Glucose Level 97 Calcium Level 8.3 L Urine Color YELLOW Urine Clarity SLIGHTLY CLOUDY A Urine pH 7.0 Urine Specific [place] 1.013 Urine Ketones NEGATIVE Urine Nitrite NEGATIVE Urine Bilirubin NEGATIVE Urine Urobilinogen 1+ H Urine Leukocyte Esterase 2+ H Urine Microscopic RBC > 182 H Urine Microscopic WBC 91 H Urine Bacteria FEW A Urine Hemoglobin 3+ H Urine Glucose NEGATIVE Urine Total Protein 1+ H Medications Medications Current Medications Acetaminophen (Tylenol Tab) 325 mg Q4H PRN GTB PAIN AND OR ELEVATED TEMP; Start 09/11/16 at 18:30 Aspirin (Aspirin) 300 mg DAILY [place] Last administered on 09/12/16 08:32; Admin Dose 300 MG; Start 09/12/16 at 09:00 Azelastine HCl (Optivar 0.05% Oph) 1 drop DAILY BOTH EYES Last administered on 09/12/16 08:32; Admin Dose 1 DROP; Start 09/12/16 at 09:00 Bisacodyl (Dulcolax Supp) 10 mg DAILY PRN [place] CONSTIPATION; Start 09/11/16 at 18 :30 Carvedilol (Coreg) 3.125 mg DAILY GTB Last administered on 09/12/16 08:35; Admin Dose 3.125 MG; Start 09/12/16 at 09:00 Lisinopril (Zestril) 10 mg DAILY GTB Last administered on 09/12/16 08:33; Admin Dose 10 MG; Start 09/12/16 at 09:00 Nitroglycerin (Nitroglycerin (Sl Tab) 0.4 Mg) 1 tab Q5M PRN SL ANGINA; Start at 18:30 Oxybutynin Chloride (Ditropan) 5 mg TID GTB Last administered on 09/12/16 12: 42; Admin Dose 5 MG; Start 09/11/16 at 21:00 Pantoprazole 40 mg 40 mg DAILY@06 IV Last administered on 09/12/16 05:34; Admin Dose 40 MG; Start 09/12/16 at 06:00 Ceftriaxone Sodium (Rocephin) 50 ml @ 100 mls/hr Q24H IVPB Last administered on 09/11/16 21:17; Admin Dose 100 MLS/HR; Start 09/11/16 at 21:00 Docusate Sodium (Colace Liquid Cup) 100 mg BID GTB Last administered on t 08:32; Admin Dose 100 MG; Start 09/11/16 at 21:00 Ondansetron HCl (Zofran Inj) 4 mg Q4H PRN IV NAUSEA AND/OR VOMITING; Start at 18:30 Senna 1 tab 1 tab DAILY PRN GTB CONSTIPATION; Start 09/11/16 at 18:30 Dextrose/Sodium Chloride (D5-NS) 1,000 ml @ 40 mls/hr Q24H IV ; Start 09/12/16 at 20:00 PIOTR ANNE MD Sep 12, 2016 20:16
[2016-09-12] MEDS: CEFTRIAXONE 1 GM/50 ML (PMX) 50 ML IVPB SCH (21:18)
[2016-09-12] MEDS: DEXTROSE 5%-0.9% NACL 1,000 ML IV SCH (21:20)
[2016-09-13 02:03] VITALS: BP 92/54; RESP 17
[2016-09-13 05:28] LABS: ALBUMIN 2.4 g/dl (3.3-4.9); ALBUMIN/GLOBULIN RATIO 0.68; CREATININE 0.54 mg/dl (0.44-1.00); POTASSIUM 3.7 mmol/L (3.5-5.1); TOTAL PROTEIN 5.9 g/dl (6.1-8.1)
[2016-09-13] MEDS: PANTOPRAZOLE 40 MG INJ IV SCH (05:36)
[2016-09-13 07:10] VITALS: BP 97/53; RESP 18
[2016-09-13] MEDS: LISINOPRIL 10 MG TAB GTB SCH (08:12)
[2016-09-13] MEDS: DOCUSATE SODIUM 10 MG/ML (10ML CUP) GTB SCH ×2 (08:14→21:10)
[2016-09-13] MEDS: OXYBUTYNIN 5 MG TAB GTB SCH ×3 (08:14→21:10)
[2016-09-13] MEDS: AZELASTINE 0.05% 6 ML OPH BOTH EYES SCH (08:18)
--- NOTE | 2016-09-13 10:07 | HP ---
DATE OF ADMISSION: 09/11/2016 HISTORY OF PRESENT ILLNESS: Ms Jay is an 81-year-old female with a history of a CVA, hypertension. The patient also has a history of G-tube placement, who was initially admitted to Hospital for a UTI and transferred here since the patient is to this hospital. The patient also has urinary retention. The patient gets in and out Nieto catheter. The patient has an EKG that shows sinus rhythm with nonspecific STT changes. PAST MEDICAL HISTORY: The patient's medical history is positive for hypertension, CVA, anemia, dementia, G-tube placement. ALLERGIES: NEGATIVE. FAMILY HISTORY: Negative. SOCIAL HISTORY: Negative. MEDICATIONS: 1. Aspirin. 2. Coreg. 3. Lisinopril. 4. Protonix. 5. Duoneb. 6. Oxybutynin. 7. Rocephin. 8. Docusate sodium. 9. Sublingual nitroglycerin. REVIEW OF SYSTEMS: Cannot be obtained. PHYSICAL EXAMINATION: The patient is aphasic. VITALS: Stable. Pulse 51, blood pressure 97/52. HEENT: Head is atraumatic, normocephalic. Pupils are reactive to light. No pallor, conjunctivae. NECK: Supple. LUNGS: Clear. CARDIOVASCULAR: Rate and rhythm were normal. Systolic murmur heard. ABDOMEN: Soft. Bowel sounds. No rigidity, EXTREMITIES: No cyanosis or clubbing or edema. SENIOR INTERACTIVE DEVELOPER: Patient is awake, alert, aphasic with generalized weakness. IMPRESSION: 1. Urinary tract infection. 2. Cerebrovascular accident (CVA). 3. Hyponatremia. 4. Atherosclerotic heart disease. 5. History of aphasia as the patient is aphasic. PLAN: Continue IV fluid, antibiotic, pain medication, Nieto catheter in and out. Orders were done. Dictated By: Marvin Ghosh MD /riley/woo /Document#: [id number] KENNY
--- NOTE | 2016-09-13 10:10 | PN ---
Date/Time of Note Date/Time of Note DATE: 09/13/16 TIME: 10:08 Assessment/Plan VTE Prophylaxis VTE Prophylaxis Intervention: ambulation Lines/Catheters IV Catheter Type (from Nrs): Saline Lock Urinary Cath still in place: Yes Reason Cath still needed: urinary retention Assessment/Plan Chief Complaint/Hosp Course 1. uti 2. peg 3. hx cva with left side hemiparesis 4. htn 5. Hypernatremia ,better Problems: Assessment/Plan 1. continue current regime 2. Continue give water via GT Subjective 24 Hr Interval Summary Subjective hx not possible: pt non-verbal Exam/Review of Systems Vital Signs Vitals Vital Signs Date Time Temp Pulse Resp B/P Pulse Ox O2 Delivery O2 Flow Rate FiO2 09/13/16 07:10 98.0 60 18 97/53 97 09/13/16 01:43 2.0 09/12/16 22:24 Simple Mask Intake and Output 09/12/16 09/12/16 09/13/16 15:00 23:00 07:00 Intake Total 670 ml 960 ml Output Total 1000 ml 700 ml Balance -330 ml 260 ml Exam Head: normocephalic Eyes: nl conjunctiva Neck: supple Respiratory: clear to auscultation Gastrointestinal: other (GT), soft Musculoskeletal: muscle weakness (left side of the body ) Results Result Diagram: 09/12/16 0539 09/13/16 0446 Results 24 hrs Laboratory Tests Test 09/12/16 11:20 09/13/16 04:46 Urine Color YELLOW Urine Clarity SLIGHTLY CLOUDY A Urine pH 7.0 Urine Specific [place] 1.013 Urine Ketones NEGATIVE Urine Nitrite NEGATIVE Urine Bilirubin NEGATIVE Urine Urobilinogen 1+ H Urine Leukocyte Esterase 2+ H Urine Microscopic RBC > 182 H Urine Microscopic WBC 91 H Urine Bacteria FEW A Urine Hemoglobin 3+ H Urine Glucose NEGATIVE Urine Total Protein 1+ H Sodium Level 148 H Potassium Level 3.7 Chloride Level 112 H Carbon Dioxide Level 25 Anion Gap 15 Blood Urea Nitrogen 30 #H Creatinine 0.54 Glucose Level 115 Calcium Level 8.0 L Total Bilirubin 0.0 L Direct Bilirubin 0.00 Indirect Bilirubin 0.0 Aspartate Amino Transf (AST/SGOT) 41 Alanine Aminotransferase (ALT/SGPT) 31 Alkaline Phosphatase 105 Total Protein 5.9 L Albumin 2.4 L Globulin 3.50 H Albumin/Globulin Ratio 0.68 Medications Medications Current Medications Acetaminophen (Tylenol Tab) 325 mg Q4H PRN GTB PAIN AND OR ELEVATED TEMP; Start 09/11/16 at 18:30 Aspirin (Aspirin) 300 mg DAILY [place] Last administered on 09/12/16 08:32; Admin Dose 300 MG; Start 09/12/16 at 09:00 Azelastine HCl (Optivar 0.05% Oph) 1 drop DAILY BOTH EYES Last administered on 09/13/16 08:18; Admin Dose 1 DROP; Start 09/12/16 at 09:00 Bisacodyl (Dulcolax Supp) 10 mg DAILY PRN [place] CONSTIPATION; Start 09/11/16 at 18 :30 Carvedilol (Coreg) 3.125 mg DAILY GTB Last administered on 09/12/16 08:35; Admin Dose 3.125 MG; Start 09/12/16 at 09:00 Lisinopril (Zestril) 10 mg DAILY GTB Last administered on 09/12/16 08:33; Admin Dose 10 MG; Start 09/12/16 at 09:00 Nitroglycerin (Nitroglycerin (Sl Tab) 0.4 Mg) 1 tab Q5M PRN SL ANGINA; Start at 18:30 Oxybutynin Chloride (Ditropan) 5 mg TID GTB Last administered on 09/13/16 08: 14; Admin Dose 5 MG; Start 09/11/16 at 21:00 Pantoprazole 40 mg 40 mg DAILY@06 IV Last administered on 09/13/16 05:36; Admin Dose 40 MG; Start 09/12/16 at 06:00 Ceftriaxone Sodium (Rocephin) 50 ml @ 100 mls/hr Q24H IVPB Last administered on 09/12/16 21:18; Admin Dose 100 MLS/HR; Start 09/11/16 at 21:00 Docusate Sodium (Colace Liquid Cup) 100 mg BID GTB Last administered on 08:14; Admin Dose 100 MG; Start 09/11/16 at 21:00 Ondansetron HCl (Zofran Inj) 4 mg Q4H PRN IV NAUSEA AND/OR VOMITING; Start at 18:30 Senna 1 tab 1 tab DAILY PRN GTB CONSTIPATION; Start 09/11/16 at 18:30 Dextrose/Sodium Chloride (D5-NS) 1,000 ml @ 40 mls/hr Q24H IV Last administered on 09/12/16t 21:20; Admin Dose 40 MLS/HR; Start 09/12/16 at 20:00 JAYESH LARIOS Sep 13, 2016 10:10
[2016-09-13] MEDS: ASPIRIN 300 MG SUPP PR SCH (12:36)
[2016-09-13 14:00] VITALS: BP 107/56; RESP 20
[2016-09-13 20:00] VITALS: BP 104/53; RESP 19
[2016-09-13] MEDS: DEXTROSE 5%-0.9% NACL 1,000 ML IV SCH ×2 (20:00→23:42)
[2016-09-13] MEDS: CEFTRIAXONE 1 GM/50 ML (PMX) 50 ML IVPB SCH (21:10)
[2016-09-14 02:00] VITALS: BP 134/81; RESP 18
[2016-09-14] MEDS: PANTOPRAZOLE 40 MG INJ IV SCH (05:43)
[2016-09-14 06:30] LABS: CALCIUM 7.7 mg/dl (8.4-10.2); CREATININE 0.57 mg/dl (0.44-1.00); POTASSIUM 3.9 mmol/L (3.5-5.1)
[2016-09-14 07:15] VITALS: BP 119/57; RESP 20
[2016-09-14] MEDS: DOCUSATE SODIUM 10 MG/ML (10ML CUP) GTB SCH (08:59)
[2016-09-14] MEDS: ASPIRIN 300 MG SUPP PR SCH (08:59)
[2016-09-14] MEDS: AZELASTINE 0.05% 6 ML OPH BOTH EYES SCH (08:59)
[2016-09-14] MEDS: LISINOPRIL 10 MG TAB GTB SCH (09:03)
[2016-09-14] MEDS: OXYBUTYNIN 5 MG TAB GTB SCH ×2 (09:06→13:46)
--- NOTE | 2016-09-14 10:29 | PN ---
Date/Time of Note Date/Time of Note DATE: 09/14/16 TIME: 10:28 Assessment/Plan VTE Prophylaxis VTE Prophylaxis Intervention: SCD's Lines/Catheters IV Catheter Type (from Nrs): Peripheral IV Urinary Cath still in place: Yes Assessment/Plan Chief Complaint/Hosp Course 1. uti 2. peg 3. hx cva with left side hemiparesis 4. htn, controlled 5. Hypernatremia ,better Problems: Assessment/Plan 1. Pending discarge 2. Formula feeding change with water flashes Subjective 24 Hr Interval Summary Subjective hx not possible: pt non-verbal Exam/Review of Systems Vital Signs Vitals Vital Signs Date Time Temp Pulse Resp B/P Pulse Ox O2 Delivery O2 Flow Rate FiO2 09/14/16 06:47 2.0 09/14/16 02:00 97.5 66 18 134/81 100 09/13/16 21:00 Nasal Cannula Intake and Output 09/13/16 09/13/16 09/14/16 15:00 23:00 07:00 Intake Total 1430 ml 1220 ml Output Total 600 ml 600 ml Balance 830 ml 620 ml Exam Constitutional: alert, other (aphasic) Head: normocephalic Eyes: nl conjunctiva ENMT: nl external ears & nose Neck: supple Respiratory: clear to auscultation Cardiovascular: regular rate and rhythm Musculoskeletal: muscle weakness (left side) Results Result Diagram: 09/12/16 0539 09/14/16 0426 Results 24 hrs Laboratory Tests Test 09/14/16 04:26 Sodium Level 145 H Potassium Level 3.9 Chloride Level 109 Carbon Dioxide Level 25 Anion Gap 15 Blood Urea Nitrogen 23 H Creatinine 0.57 Glucose Level 111 Calcium Level 7.7 L Medications Medications Current Medications Acetaminophen (Tylenol Tab) 325 mg Q4H PRN GTB PAIN AND OR ELEVATED TEMP; Start 09/11/16 at 18:30 Aspirin (Aspirin) 300 mg DAILY [place] Last administered on 09/14/16 08:59; Admin Dose 300 MG; Start 09/12/16 at 09:00 Azelastine HCl (Optivar 0.05% Oph) 1 drop DAILY BOTH EYES Last administered on 09/14/16 08:59; Admin Dose 1 DROP; Start 09/12/16 at 09:00 Bisacodyl (Dulcolax Supp) 10 mg DAILY PRN [place] CONSTIPATION; Start 09/11/16 at 18 :30 Carvedilol (Coreg) 3.125 mg DAILY GTB Last administered on 09/14/16 09:06; Admin Dose 3.125 MG; Start 09/12/16 at 09:00 Lisinopril (Zestril) 10 mg DAILY GTB Last administered on 09/14/16 09:03; Admin Dose 10 MG; Start 09/12/16 at 09:00 Nitroglycerin (Nitroglycerin (Sl Tab) 0.4 Mg) 1 tab Q5M PRN SL ANGINA; Start at 18:30 Oxybutynin Chloride (Ditropan) 5 mg TID GTB Last administered on 09/14/16 09: 06; Admin Dose 5 MG; Start 09/11/16 at 21:00 Pantoprazole 40 mg 40 mg DAILY@06 IV Last administered on 09/14/16 05:43; Admin Dose 40 MG; Start 09/12/16 at 06:00 Ceftriaxone Sodium (Rocephin) 50 ml @ 100 mls/hr Q24H IVPB Last administered on 09/13/16 21:10; Admin Dose 100 MLS/HR; Start 09/11/16 at 21:00 Docusate Sodium (Colace Liquid Cup) 100 mg BID GTB Last administered on 08:59; Admin Dose 100 MG; Start 09/11/16 at 21:00 Ondansetron HCl (Zofran Inj) 4 mg Q4H PRN IV NAUSEA AND/OR VOMITING; Start at 18:30 Senna 1 tab 1 tab DAILY PRN GTB CONSTIPATION; Start 09/11/16 at 18:30 Dextrose/Sodium Chloride (D5-NS) 1,000 ml @ 40 mls/hr Q24H IV Last administered on 09/13/16 23:42; Admin Dose 40 MLS/HR; Start 09/12/16 at 20:00 JAYESH LARIOS Sep 14, 2016 10:29
--- NOTE | 2016-09-14 10:35 | PDOCDIS ---
Discharge Instructions CONDITION Patient Condition: Serious HOME CARE INSTRUCTIONS: Diet Instructions: tube feedingSpecial Diet: GTube Feeding ACTIVITY: Activity Restrictions: Slowly Increase Activity Bathing Restrictions: Sponge Bath JAYESH LARIOS Sep 14, 2016 10:35
[2016-09-14] MEDS ORDERED: SENN-53 GTB (10:37)
[2016-09-14] MEDS ORDERED: CIPR-193 GTB (10:37)
[2016-09-14 14:00] VITALS: BP 98/57; RESP 18
--- NOTE | 2016-09-14 17:26 | DS ---
Date/Time of Note Date/Time of Note DATE: 09/14/16 TIME: 17:21 Discharge Summary Admission/Discharge Info Admit Date/Time Sep 11, 2016 at 16:06 Discharge Date/Time Sep 14, 2016 at 16:49 Discharge Diagnosis UTI Consults dr Bach Hx of Present Illness pt was admitted for ALOC, pt has hx of left CVA hemiparesis, has a johnston catheter in place. Started antibiotics improved pt mental status. Hospital Course 1. uti 2. peg 3. hx cva with left side hemiparesis 4. htn, controlled 5. Hypernatremia ,better Home Meds Active Scripts Ciprofloxacin Hcl* (Ciprofloxacin Hcl*) 250 Mg Tablet, 250 MG GTB BID, #10 TAB Prov:JAYESH LARIOS 09/14/16 Sennosides* (Senna Lax*) 8.6 Mg Tablet, 1 TAB GTB DAILY Y for CONSTIPATION for 28 Days, TAB Prov:JAYESH LARIOS 09/14/16 Aspirin (Aspirin Lite-Coat) 325 Mg Tablet, 325 MG GTB DAILY for 28 Days, TAB Prov:GIAN HERNANDEZ MD 07/30/16 Carvedilol* (Carvedilol*) 3.125 Mg Tablet, 3.125 MG PO BID for 14 Days, TAB Prov:GIAN HERNANDEZ MD 07/30/16 Reported Medications Bisacodyl* (Bisacodyl*) 5 Mg Tablet.dr, 5 MG PO DAILY Y for CONSTIPATION, TAB 07/23/16 Azelastine Hcl (Optivar 0.05% Oph (6ml)) 0.05%-6 Ml Opht, 1 DROP BOTH EYES DAILY , EACH 07/23/16 Lisinopril* (Lisinopril*) 10 Mg Tablet, 10 MG PO DAILY, #30 TAB 07/23/16 Discontinued Scripts Oxybutynin Chloride* (Ditropan*) 5 Mg Tab, 5 MG NGT TID for 30 Days, TAB Prov:JAYESH LARIOS 07/27/16 Primary Care Provider Not On Staff Doctor Pending Labs Laboratory Tests Test 09/14/16 04:26 Sodium Level 145mmol/L (135-144) Potassium Level 3.9mmol/L (3.5-5.1) Chloride Level 109mmol/L (97-110) Carbon Dioxide Level 25mmol/L (21-31) Anion Gap 15 (8-16) Blood Urea Nitrogen 23mg/dl (7-20) Creatinine 0.57mg/dl (0.44-1.00) Glucose Level 111mg/dl (70-220) Calcium Level 7.7mg/dl (8.4-10.2) JAYESH LARIOS Sep 14, 2016 17:26
== END 2016-09-14 16:49 | DRG 690 ==
LOC: PP2 16:06
PROVIDERS: ADMIT Internal Medicine Nephrology; ATTEND Internal Medicine Nephrology
DX: N39.0 Urinary tract infection, site not specified (principal); E87.0 Hyperosmolality and hypernatremia; I69.954 Hemiplegia and hemiparesis following unspecified cerebrovascular disease affecting left non-dominant side; F03.90 Unspecified dementia, unspecified severity, without behavioral disturbance, psychotic disturbance, mood disturbance, and anxiety; I10 Essential (primary) hypertension; D64.9 Anemia, unspecified; Z93.1 Gastrostomy status; Z79.82 Long term (current) use of aspirin; I25.10 Atherosclerotic heart disease of native coronary artery without angina pectoris
CPT/HCPCS: 36600; 71010; 80048; 80053; 81001; 82803; 85025; 87086; 94640; 94664; C9113; J0696; J7042

== ENCOUNTER 2016-09-26 15:30 | Emergency (ER) | payer OTHER ==
[~2016-09-26] VITALS: Ht 154.9 cm; Wt 70.0 kg
[~2016-09-26 15:30] MED LIST changes: +CIPR-193 GTB; -OXYB5TAB7 NGT; +SENN-53 GTB
[2016-09-26 15:34] VITALS: Ht 154.9 cm; Wt 70.0 kg
--- NOTE | 2016-09-26 16:59 | ERD ---
ER Documentation Chief Complaint Date/Time DATE: 09/26/16 TIME: 16:58 Chief Complaint G-Tube malfunction. HPI This is a 1-year-old female who has a feeding tube in because of a stroke. Feeding tube is not working today because the attachment where the food is put into is cracked and will leak and not going to the to properly. The insertion site into the abdominal wall is intact and has no issues there. There are no further complaint ROS All systems reviewed and are negative except as per history of present illness. Medications Home Meds Active Scripts Ciprofloxacin Hcl* (Ciprofloxacin Hcl*) 250 Mg Tablet, 250 MG GTB BID, #10 TAB Prov:JAYESH LARIOS 09/14/16 Sennosides* (Senna Lax*) 8.6 Mg Tablet, 1 TAB GTB DAILY Y for CONSTIPATION for 28 Days, TAB Prov:JAYESH LARIOS 09/14/16 Aspirin (Aspirin Lite-Coat) 325 Mg Tablet, 325 MG GTB DAILY for 28 Days, TAB Prov:GIAN HERNANDEZ MD 07/30/16 Carvedilol* (Carvedilol*) 3.125 Mg Tablet, 3.125 MG PO BID for 14 Days, TAB Prov:GIAN HERNANDEZ MD 07/30/16 Reported Medications Bisacodyl* (Bisacodyl*) 5 Mg Tablet.dr, 5 MG PO DAILY Y for CONSTIPATION, TAB 07/23/16 Azelastine Hcl (Optivar 0.05% Oph (6ml)) 0.05%-6 Ml Opht, 1 DROP BOTH EYES DAILY , EACH 07/23/16 Lisinopril* (Lisinopril*) 10 Mg Tablet, 10 MG PO DAILY, #30 TAB 07/23/16 Allergies Allergies: Coded Allergies: No Known Allergy (Unverified , 07/23/16) PMhx/Soc History of Surgery: Yes Anesthesia Reaction: No Hx Neurological Disorder: Yes (STROKE ) Hx Respiratory Disorders: No Hx Cardiac Disorders: Yes (CVA ) Hx Psychiatric Problems: No Hx Miscellaneous Medical Probl: No Hx Alcohol Use: No Hx Substance Use: No Hx Tobacco Use: No FmHx Family History: No coronary disease Physical Exam Vitals Vital Signs Date Time Temp Pulse Resp B/P Pulse Ox O2 Delivery O2 Flow Rate FiO2 09/26/16 15:34 97.9 68 14 90/57 94 Physical Exam Const: [] Head: Atraumatic Eyes: Normal Conjunctiva ENT: Normal External Ears, Nose and Mouth. Neck: Full range of motion..~ No meningismus. Resp: Clear to auscultation bilaterally Cardio: Regular rate and rhythm, no murmurs Abd: Soft, non tender, non distended. Normal bowel sounds, feeding tube intact Skin: No petechiae or rashes Back: No midline or flank tenderness Ext: No cyanosis, or edema Neur: Awake and alert Psych: Normal Mood and Affect Procedures/MDM The distal end of the feeding tube is cracked and broken therefore the tube was cut and we reattached the ports into the newly cut tubing and the feeding tube works just fine Departure Diagnosis: Primary Impression: Encounter for feeding tube placement Condition: Stable Patient Instructions: Feeding Tube Replacement Referrals: DOCTOR,NOT ON STAFF (PCP) FATOU LINDA DO Sep 26, 2016 16:59
[2016-09-26 17:12] VITALS: BP 111/78; PULSE 68; RESP 16; TEMP 97.9
== END 2016-09-26 17:13 | disposition home or self-care (01) ==
LOC: E/R 15:30
DX: Z43.1 Encounter for attention to gastrostomy (principal); Z79.82 Long term (current) use of aspirin
CPT/HCPCS: 43760; Z7502